=== PATIENT | female | born 1945 | race Caucasian/White ===

== ENCOUNTER → 2019-05-02 | Outpatient (CLI) | payer MEDICARE ==
--- NOTE | 2019-05-02 21:46 | CONS ---
CONSULTATION DATE OF SERVICE: 05/02/2019 This patient is a 73-year-old lady who has been evaluated in the sleep center for possible obstructive sleep apnea-hypopnea syndrome. HISTORY OF PRESENT ILLNESS/SLEEP-WAKE EVALUATION: Patient's usual sleep schedule is from around midnight until 8 a.m. Sometimes she has problems with falling asleep. There is a TV set in the bedroom. She usually sleeps on the side position with her with loud snoring and episodes of snorting during sleep. She wakes up from sleep multiple times, about 5 times, and 3 times with nocturia. She has episodes of awakenings with dry mouth, panic attack, episodes of palpitations, heartburn, restless legs, sleeptalking, sometimes nightmares. In the morning she wakes up tired, has difficulties paying attention, falling asleep during the day. She has problems with memory, concentration, irritability, depression, anxiety, sexual dysfunction. [place] Sleepiness Scale is significantly increased at 20. PAST MEDICAL HISTORY: Past medical history is positive for: 1. 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 2. Atherosclerosis with narrowing of carotid arteries. 3. Coronary artery disease. 4. 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 5. Hypertension. 6. History of deep venous thrombosis of right leg. PAST SURGICAL HISTORY: 1. Bilateral carotid endarterectomy. 2. Three stent insertions to coronary arteries. 3. Stent insertion to arteries of right leg and iliac artery. MEDICATIONS: 1. Sertraline. 2. Amlodipine. 3. Clopidogrel. 4. Metoprolol. 5. Xanax. 6. Atorvastatin. 7. Aspirin. SOCIAL HISTORY: Positive for smoking for about 55 pack/years; quit one year ago. Alcohol consumption none. FAMILY HISTORY: Hypertension, hyperlipidemia, arthritis, emphysema, snoring, cancer, acid reflux, anemia, restless legs. REVIEW OF SYSTEMS: Multiple awakenings from sleep, tiredness and sleepiness during the day. Swelling of right leg. PHYSICAL EXAMINATION: GENERAL: A pleasant lady without distress. VITAL SIGNS: BP 134/58, HR 70, RR 16, height 5 feet 1-1/2 inch, weight 162, body mass index 30.1, temperature 98.0, oxygen saturation at room air 98%. HEENT: PERRLA, EOMI. Evaluation of oropharynx showed tongue protrudes midline. Extremely low position of soft palate. Mallampati IV. Slight restriction of nasal breathing. NECK: Supple. No JVD. Thyroid is not palpable. Neck measures 14-1/2 inches in circumference. LUNGS: Clear to percussion and to auscultation. Good air exchange. No wheezing or rhonchi. HEART: S1, S2 regular. No murmurs, gallops or rubs. ABDOMEN: Slightly obese. EXTREMITIES: One plus swelling of right ankle. VACUUM REPAIRER: Awake, alert, and oriented X3. Cranial nerves 2 to 7 intact. There is no fasciculation or atrophy. noted. No focal deficits observed. IMPRESSION: 1. Snoring, episodes of snorting during sleep, multiple awakenings from sleep with nocturia, extremely low position of soft palate, Mallampati IV, significant excessive daytime sleepiness ([place] Sleepiness Scale is 20); obstructive sleep apnea/ hypopnea syndrome. 2. Mild obesity; body mass index 30.1. 3. Hypertension. 4. Coronary artery disease, status post 3 stent insertions. 5. History of episode of atrial fibrillation. 6. Status post bilateral carotid endarterectomy. 7. Status post stent insertion to right leg artery and iliac artery. 8. History of stroke in January of 2018 and developing of left eye blindness. 9. History of deep venous thrombosis of right leg. PLAN: 1. Polysomnography for evaluation of patient's breathing during sleep. 2. CPAP/BiPAP titration if sleep study confirms obstructive sleep apnea-hypopnea syndrome. 3. Preferable position during sleep on the side. 4. No driving if patient feels any sleepiness. 5. I will see patient for follow up visit to explain results of testing and following plan. Thank you very much for referring this patient for consultation. Sincerely, Ron Draper MD, PhD, FAASM Diplomat of [employer] [facility] MMODL / IJN: [id number] /
== END | disposition home or self-care (01) ==
LOC: SLEEP 14:18
PROVIDERS: ATTEND Internal Medicine
DX: G47.33 Obstructive sleep apnea (adult) (pediatric) (principal); E66.9 Obesity, unspecified; I10 Essential (primary) hypertension; I25.10 Atherosclerotic heart disease of native coronary artery without angina pectoris; H54.40 Blindness, one eye, unspecified eye; Z95.5 Presence of coronary angioplasty implant and graft; Z68.30 Body mass index [BMI] 30.0-30.9, adult; Z86.79 Personal history of other diseases of the circulatory system; Z98.890 Other specified postprocedural states; Z95.820 Peripheral vascular angioplasty status with implants and grafts; Z86.73 Personal history of transient ischemic attack (TIA), and cerebral infarction without residual deficits; Z87.891 Personal history of nicotine dependence; Z86.718 Personal history of other venous thrombosis and embolism; Z83.6 Family history of other diseases of the respiratory system; Z79.02 Long term (current) use of antithrombotics/antiplatelets; Z79.82 Long term (current) use of aspirin; Z79.899 Other long term (current) drug therapy
CPT/HCPCS: 99211

== ENCOUNTER 2023-01-08 14:35 | Inpatient (IN) | payer MEDICARE ==
[2023-01-08] MEDS ORDERED: IPRATROPIUM-ALBUTEROL 3 ML NEB INHALATION STA (14:59)
[2023-01-08] MEDS ORDERED: HYDROmorphone 0.5 MG/0.5 ML SYRINGE IVP STA (14:59)
[2023-01-08] MEDS ORDERED: SODIUM CHLORIDE 0.9% 1,000 ML IV STA (14:59)
[2023-01-08 15:31] LABS: Anisocytosis Slight; Basophils % (A) 0 %; Eosinophils # (A) 0.3 k/uL (0-0.7); Eosinophils % (A) 4 %; HCT 32.1 % (34.0-46.0); HGB 10.4 gm/dL (11.4-16.0); Hypochromasia Slight; Lymphocytes # (A) 0.8 k/uL (1.0-4.8); Lymphocytes % (A) 11 %; MCH 29.5 pg (25.0-35.0); MCHC 32.3 g/dL (31.0-37.0); MCV 91.3 fL (80.0-100.0); Mean Platelet Volume 9.1; Monocytes # (A) 0.3 k/uL (0-1.0); Monocytes % (A) 5 %; Neutrophils # (A) 5.8 k/uL (1.3-7.7); Neutrophils % (A) 79 %; Platelet Count 155 k/uL (150-450); RBC 3.52 m/uL (3.80-5.40); RDW 18.4 % (11.5-15.5); WBC 7.2 k/uL (3.8-10.6)
[2023-01-08 15:40] LABS: INR 1.1 (<1.2); Partial Thromboplastin Time 23.7 sec (22.0-30.0)
--- NOTE | 2023-01-08 15:42 | XR ---
EXAMINATION TYPE: XR chest 1V DATE OF EXAM: 01/08/2023 HISTORY: Shortness of breath. COMPARISON: None. TECHNIQUE: Single view of the chest is submitted. FINDINGS: Demonstrated are scattered senescent parenchymal change. There is no evidence for focal infiltrate. Chronic appearing upper lobe reticulonodular changes. The heart is stable. Hilar and mediastinal structures are within normal limits. Degenerative changes are seen of the dorsal spine. IMPRESSION: 1. Chronic changes without evidence for acute pulmonary disease.
[2023-01-08 15:45] LABS: African American GFR (CKD) 88 (>60 ml/min/1.73 sqM); Anion Gap 6 mmol/L; Blood Urea Nitrogen 14 mg/dL (7-17); Calcium 8.5 mg/dL (8.4-10.2); Carbon Dioxide 22 mmol/L (22-30); Chloride 109 mmol/L (98-107); Glucose 105 mg/dL (74-99); Non-African American GFR(CKD) 77 (>60 ml/min/1.73 sqM); Potassium 4.3 mmol/L (3.5-5.1); Sodium 137 mmol/L (137-145)
--- NOTE | 2023-01-08 15:50 | CT ---
EXAMINATION TYPE: CT brain wo con DATE OF EXAM: 01/08/2023 COMPARISON: None HISTORY: fall CT DLP: 1143.[address] of the brain was performed. The ventricles, basal cisterns and sulci overlying the cerebral convexities demonstrate mild enlargem ent. There is no evidence for intracranial hemorrhage or sulcal effacement. There is decreased attenuation about the periventricular white matter and deep white matter of both c erebral hemispheres, compatible with chronic small vessel ischemia. Differential diagnosis does inclu de demyelination. No mass effects are seen.No midline shift. Osseous calvarium is intact. If symptoms persist consider MRI. IMPRESSION: 1. Age related atrophic and chronic small vessel ischemic change without acute intracranial process s een at this time.
[2023-01-08] MEDS ORDERED: methylPREDNISolone SOD SUCCI 40 MG/ML 1 ML VIAL IV STA (16:15)
[2023-01-08] MEDS ORDERED: NALOXONE 0.4 MG/ML 1 ML VIAL IV PRN (16:20)
[2023-01-08] MEDS: SODIUM CHLORIDE 0.9% 1,000 ML IV SCH (16:55)
[2023-01-08] MEDS ORDERED: IPRATROPIUM-ALBUTEROL 3 ML NEB INHALATION PRN (18:14)
[2023-01-08] MEDS: HYDROmorphone 0.5 MG/0.5 ML SYRINGE IVP PRN (18:20)
--- NOTE | 2023-01-08 18:29 | P.CONS ---
History of Present Illness - Reason for Consult Consult date: 01/08/23 - History of Present Illness Patient is a 77-year-old female with PMH of CAD post 2 stents 3 years ago, PAD post right lower extremity stenting, bilateral endarterectomy, CVA 5 years ago that led to complete left eye blindness, hypertension, dyslipidemia, depression, hypothyroidism, COPD presents to the ED as a transfer from an outside hospital for right intertrochanteric fracture. Patient reports tripping over her dog bowl. She denies any loss of consciousness. She currently rates her pain 8 out of 10 in severity. Patient is originally from [place] and follows a vascular surgeon and systems admin. She currently denies any chest pain. She reports shortness of breath and wheezing. She is not on any home oxygen. She is unable to describe her exercise tolerance as her mobility is quite limited due to her PAD and herniated disc in the back. In the ED, she was requiring 4 L nasal cannula to maintain O2 saturation in the low 90s. Chest x-ray showed chronic reticulonodular changes with no acute process. CT brain showed chronic small vessel ischemic changes without acute intracranial process. CBC shows he moglobin of 10.4 with MCV of 91.3. Coagulation panel within normal limits. BMP shows chloride 109 and glucose 105. Patient is admitted under orthopedic surgery with [facility] on consultation. Pertinent positives and negatives as discussed in HPI, a complete review of systems was performed and all other systems are negative. General: non toxic, mild distress, appears at stated age Derm: warm, dry Head: atraumatic, normocephalic, symmetric Eyes: EOMI, no lid lag, anicteric sclera Mouth: no lip lesion, mucus membranes moist Cardiovascular: S1S2 reg, no murmur Lungs: Expiratory wheezing bilateral, no rhonchi, no rales , no accessory muscle use Abdominal: soft, nontender to palpation, no guarding, no appreciable organomegaly Ext: no gross muscle atrophy, no edema, no contractures Neuro: no focal neuro deficits Psych: Alert, oriented, appropriate affect Acute hypoxic respiratory failure secondary to COPD exacerbation Chronic conditions: CAD post 2 stents 3 years ago, PAD post right lower extremity stenting, bilateral endarterectomy, CVA 5 years ago that led to complete left eye blindness, hypertension, dyslipidemia, depression, hypothyroidism Based on my assessment of this patient, this patient meets a high complexity level of care. Patient has an acute diagnosis of right intertrochanteric fracture that poses a threat to life or bodily function. This is also complicated by COPD exacerbation. She currently is requiring 4 L cannula to maintain O2 saturation greater than 92%. Patient is above average risk for serious complications including pneumonia, cardiac complications and . She would need to be medically optimized with regard to her respiratory status prior to surgery. EKG will be ordered. Echocardiogram will be ordered. Patient be placed on telem etry monitoring. Hold Xarelto and Plavix for now. Pulmonology will be consulted for further management of this patient. Cardiology will be consulted for cardiac clearance. Bronchodilators: DuoNeb 0.5mg-3mg/3ml scheduled and as needed for SOB and wheezing. Symbicort 2 puff BID. Spiriva 1 puff daily. Steroids: SoluMedrol 40 mg IV BID. Supplemental oxygen to maintain O2 > 92%. Lovenox SQ for DVT prophylaxis. Patient names her decision maker if she can't make decisions for herself. Patient would like to be full code. I have reviewed the following oracle database consultant notes: I have reviewed the results of the following tests: CBC, BMP, coagulation panel, CT brain. I have ordered the following tests: EKG, echocardiogram. I have discussed the care of this patient with the following independent historian: I have independently interpreted the following test below: Chest x-ray as above. I have discussed the management of this patient with the following physician: Case was discussed with the ED physician in detail. Past Medical History Past Medical History: Asthma, COPD, Deep Vein Thrombosis (DVT), Hyperlipidemia, Hypertension History of Any Multi-Drug Resistant Organisms: None Reported Past Surgical History: Heart Catheterization With Stent Additional Past Surgical History / Comment(s): Right leg PAD Past Psychological History: No Psychological Hx Reported Smoking Status: Former smoker Past Alcohol Use History: None Reported Past Drug Use History: None Reported Medications and Allergies Home Medications Medication Instructions Recorded Confirmed Type Clopidogrel [Plavix] 75 mg PO DAILY 01/08/23 01/08/23 History Ferrous Sulfate [Feosol] 325 mg PO DAILY 01/08/23 01/08/23 History Fluticasone/Umeclidin/Vilanter 1 puff INHALATION RT-DAILY PRN 01/08/23 01/08/23 History [Trelegy Ellipta 100-62.5-25] Levothyroxine Sodium [Synthroid] 25 mcg PO DAILY 01/08/23 01/08/23 History Nebivolol HCl 10 mg PO HS 01/08/23 01/08/23 History Pregabalin [Lyrica] 75 - 150 mg PO Q8H PRN 01/08/23 01/08/23 History Rivaroxaban [Xarelto] 2.5 mg PO BID 01/08/23 01/08/23 History Rosuvastatin Calcium [Crestor] 40 mg PO HS 01/08/23 01/08/23 History Sertraline [Zoloft] 100 mg PO DAILY 01/08/23 01/08/23 History Allergies Allergy/AdvReac Type Severity Reaction Status Date / Time No Known Allergies Allergy Verified 01/08/23 16:45 Physical Exam Vitals: Vital Signs Temp Pulse Resp BP Pulse Ox 01/08/23 18:17 71 18 132/45 90 L 01/08/23 17:30 74 18 113/62 93 L 01/08/23 15:52 77 18 01/08/23 15:47 75 18 01/08/23 14:39 98.3 F 73 18 119/40 92 L Intake and Output 01/08/23 01/08/23 01/08/23 06:59 14:59 22:59 Other: Weight 67.585 kg Results CBC & Chem 7: 01/08/23 15:02 01/08/23 15:02 Labs: Abnormal Lab Results - Last 24 Hours (Table) 01/08/23 01/08/23 Range/Units 15:02 15:02 RBC 3.52 L (3.80-5.40) m/uL Hgb 10.4 L (11.4-16.0) gm/dL Hct 32.1 L (34.0-46.0) % RDW 18.4 H (11.5-15.5) % Lymphocytes # 0.8 L (1.0-4.8) k/uL Chloride 109 H (98-107) mmol/L Glucose 105 H (74-99) mg/dL
[2023-01-08] MEDS ORDERED: HYDROcodone/APAP 5-325MG 1 EACH TAB PO PRN (19:55)
[2023-01-08] MEDS ORDERED: ONDANSETRON 4 MG/2 ML VIAL IVP PRN (19:56)
[2023-01-08] MEDS ORDERED: IPRATROPIUM-ALBUTEROL 3 ML NEB INHALATION SCH (20:00)
[2023-01-08] MEDS: HYDROcodone/APAP 7.5-325MG 1 EACH TAB PO PRN (20:29)
[2023-01-08] MEDS: ATORVASTATIN 80 MG TAB PO SCH (20:30)
[2023-01-08] MEDS: NEBIVOLOL 5 MG TAB PO SCH (20:30)
[2023-01-08] MEDS ORDERED: methylPREDNISolone SOD SUCCI 40 MG/ML 1 ML VIAL IV SCH (21:00)
--- NOTE | 2023-01-08 21:16 | ED ---
General Adult HPI - General Chief complaint: Extremity Injury, Lower Stated complaint: Right hip fracture Time Seen by Provider: 01/08/23 14:39 Source: patient, EMS, RN notes reviewed, old records reviewed Mode of arrival: EMS Limitations: no limitations - History of Present Illness Initial comments: Patient is a 77-year-old female with past medical history remarkable for atrial fibrillation on xeralto, COPD, who is transferred from [facility] as she is a [facility] resident for a right hip fracture. Patient fell yesterday tripping over a dog dishes and landed on her right hip. Denies loss conscious. Denies any blood thinner use. CT imaging obtained at the outside hospital revealed a right femoral intertrochanteric fracture. Transferred to the [facility], [facility] for further management. Denies any neurovascular deficits in the right lower extremity. No other imaging obtained at the outside facility. Otherwise has no acute complaints other than pain. Patient does present mildly hypoxic in the upper 80s, which improves on 2 L nasal cannula. She states she does have a history of COPD. Is not normally on oxygen. Presents for further evaluation at this time. Presents for admission. - Related Data Home Medications Medication Instructions Recorded Confirmed Clopidogrel [Plavix] 75 mg PO DAILY 01/08/23 01/08/23 Ferrous Sulfate [Feosol] 325 mg PO DAILY 01/08/23 01/08/23 Fluticasone/Umeclidin/Vilanter 1 puff INHALATION RT-DAILY PRN 01/08/23 01/08/23 [Trelegy Ellipta 100-62.5-25] Levothyroxine Sodium [Synthroid] 25 mcg PO DAILY 01/08/23 01/08/23 Nebivolol HCl 10 mg PO HS 01/08/23 01/08/23 Pregabalin [Lyrica] 75 - 150 mg PO Q8H PRN 01/08/23 01/08/23 Rivaroxaban [Xarelto] 2.5 mg PO BID 01/08/23 01/08/23 Rosuvastatin Calcium [Crestor] 40 mg PO HS 01/08/23 01/08/23 Sertraline [Zoloft] 100 mg PO DAILY 01/08/23 01/08/23 Allergies Allergy/AdvReac Type Severity Reaction Status Date / Time No Known Allergies Allergy Verified 01/08/23 16:45 Review of Systems ROS Statement: Those systems with pertinent positive or pertinent negative responses have been documented in the HPI. Review of Systems: CONST: Denies fever EYES: Denies blurry vision ENT: Denies nasal congestion C/V: Denies Chest pain RESP: Denies shortness of breath GI: Denies abdominal pain : Denies dysuria SKIN: Denies rash. MSK: Endorses right hip pain NEURO: Denies headache ROS Other: All systems not noted in ROS Statement are negative. Past Medical History Past Medical History: Asthma, COPD, Deep Vein Thrombosis (DVT), Hyperlipidemia, Hypertension History of Any Multi-Drug Resistant Organisms: None Reported Past Surgical History: Heart Catheterization With Stent Additional Past Surgical History / Comment(s): 2 heart stents, 2 R Upper leg s tents, 1 R iliac stent (all MRI compatible) Past Anesthesia/Blood Transfusion Reactions: No Reported Reaction Date of Last Stent Placement:: 2018 Past Psychological History: No Psychological Hx Reported Smoking Status: Former smoker Past Alcohol Use History: None Reported Past Drug Use History: None Reported General Exam - General Exam Comments Initial Comments: General: Appears in mild distress secondary to right hip pain. HEAD: Normal with no signs of head trauma. EYES: PERRLA, EOMI, conjunctiva normal, no discharge. ENT: Hearing grossly intact, normal oropharynx. RESPIRATORY: Bilateral end expiratory wheezing. Hypoxia on room air. C/V: Regular rate and rhythm. S1 and S2 auscultated, no edema, peripheral pulses 2+ and intact throughout ABD: Abd is soft, nontender, nondistended EXT: Reduced range of motion of the right hip secondary to pain in the right hip. No obvious deformity. Neurovascularly intact throughout the right lower extremity. SKIN: No rashes or lesions observed on exposed skin. NEURO: Alert and oriented x 4. Cranial nerves II-XII intact. No focal sensory or strength deficits. Limitations: no limitations Course Vital Signs 01/08/23 01/08/23 01/08/23 14:39 15:47 15:52 Temperature 98.3 F Pulse Rate 73 75 77 Respiratory 18 18 18 Rate Blood Pressure 119/40 O2 Sat by Pulse 92 L Oximetry 01/08/23 17:30 Temperature Pulse Rate 74 Respiratory 18 Rate Blood Pressure 113/62 O2 Sat by Pulse 93 L Oximetry Medical Decision Making - Medical Decision Making Was pt. sent in by a medical professional or institution (Dr., PA, PRODUCE ASSOCIATE, urgent care, hospital, or long term...) When possible be specific @ -No Did you speak to anyone other than the patient for history (EMS, parent, family, police, friend...)? What history was obtained from this source @ -No Did you review nursing and triage notes (agree or disagree)? Why? @ -I reviewed and agree with nursing and triage notes Were old charts reviewed (outside hosp., previous admission, EMS record, old EKG, old radiological studies, urgent care reports/EKG's, long term records)? Report findings @ -Charts reviewed from the [place] emergency department. Imaging uploaded into our EMR. Differential Diagnosis (chest pain, altered mental status, abdominal pain women, abdominal pain men, vaginal bleeding, weakness, fever, dyspnea, syncope, headache, dizziness, GI bleed, back pain, seizure, CVA, palpatations, mental he alth, musculoskeletal)? @ -Differential Musculoskeletal Muscular strain, contusion, ligament sprain, fracture, arthritis, septic arthritis, bursitis, cellulitis, muscle spasm, nerve compression, DVT, arterial occlusion, herpes zoster, electrolyte abnormality, tumor.... This is not meant to be in all inclusive list EKG interpreted by me (3pts min.). @ -As above X-rays interpreted by me (1pt min.). @ -Chest x-ray reveals no obvious acute cardio pulmonary process. CT interpreted by me (1pt min.). @ -CT brain was obtained and showed no obvious acute intracranial process. U/S interpreted by me (1pt. min.). @ -None done What testing was considered but not performed or refused? (CT, X-rays, U/S, labs)? Why? @ -None What meds were considered but not given or refused? Why? @ -None Did you discuss the management of the patient with other professionals (professionals i.e. LOVE Donahue, PRODUCE ASSOCIATE, lab, RT, psych nurse, child welfare social worker, oenologist, t eacher, human resources officer, rifle case repairer)? Give summary @ -Spoke with mid-level provider [facility] accepted the admission. Spoke with [facility], Dr. Le who accepted the consult. Was smoking cessation discussed for >3mins.? @ -No Was critical care preformed (if so, how long)? @ -No Were there social determinants of health that impacted care today? How? (Myriam elessness, low income, unemployed, alcoholism, drug addiction, transportation, low edu. Level, literacy, decrease access to med. care, [facility], rehab)? @ -No Was there de-escalation of care discussed even if they declined (Discuss DNR or withdrawal of care, Hospice)? DNR status @ -No What co-morbidities impacted this encounter? (DM, HTN, Smoking, COPD, CAD, Cancer, CVA, ARF, Chemo, Hep., AIDS, mental health diagnosis, sleep apnea, morbid obesity)? @ -Atrial fibrillation on blood thinners, COPD Was patient admitted / discharged? Hospital course, mention meds given and route, prescriptions, significant lab abnormalities, going to OR and other pertinent info. @ -Based on the patient's presentation and physical exam, I'm concerned for what looks like a right femoral fracture. Already diagnosed based on imaging from [facility]. She'll be admitted for this, however they did not obtain CT brain. Mental status appears well but I would like to definitively rule out any significant intracranial injury. She was in agreement this plan. She was a fall on blood thinners. Due to her hypoxia, we will also obtain a chest x-ray as well as preop labs. She'll be symptomatically treated with IV steroids, breathing treatments for COPD. She was in agreement with this plan. She'll be given IV analgesic medications. Vital signs within acceptable limits when patient is on nasal cannula oxygen. CT imaging unremarkable. Chest x-ray unremarkable. EKG shows no evidence of acute ischemia. Labs are within acceptable limits. At this time, I gave the patient. She'll be admitted. She was in agreement this plan. We will hold anticoagulation. Patient's wheezing is improved but we'll continue treatment with IV steroids and breathing treatments. Pulmonology will be consulted. Medicine will be consulted for medical management. I spoke with Dr. Le who accepted the consult. I suspect with the admitting team, orthopedics on-call Luis A Ellis who accepted the admission. Undiagnosed new problem with uncertain prognosis? @ -No Drug Therapy requiring intensive monitoring for toxicity (Heparin, Nitro, Insulin, Cardizem)? @ -No Were any procedures done? @ -No Diagnosis/symptom? @ -Fall, right intertrochanteric femur fracture Acute, or Chronic, or Acute on Chronic? @ -Acute Uncomplicated (without systemic symptoms) or Complicated (systemic symptoms)? @ -Complicated Side effects of treatment? @ -No Exacerbation, Progression, or Severe Exacerbation? @ -No Poses a threat to life or bodily function? How? (Chest pain, USA, MS, pneumonia, PE, COPD, DKA, ARF, appy, cholecystitis, CVA, Diverticulitis, Homicidal, Suicidal, threat to staff... and all critical care pts) @ -yes Diagnosis/symptom? @ -COPD exacerbation Acute, or Chronic, or Acute on Chronic? @ -Acute Uncomplicated (without systemic symptoms) or Complicated (systemic symptoms)? @ -Complicated Side effects of treatment? @ -none Exacerbation, Progression, or Severe Exacerbation] @ -no Poses a threat to life or bodily function? @ -Yes - Lab Data Result diagrams: 01/08/23 15:02 01/08/23 15:02 Lab Results 01/08/23 01/08/23 01/08/23 Range/Units 15:02 15:02 15:02 WBC 7.2 (3.8-10.6) k/uL RBC 3.52 L (3.80-5.40) m/uL Hgb 10.4 L (11.4-16.0) gm/dL Hct 32.1 L (34.0-46.0) % MCV 91.3 (80.0-100.0) fL MCH 29.5 (25.0-35.0) pg MCHC 32.3 (31.0-37.0) g/dL RDW 18.4 H (11.5-15.5) % Plt Count 155 (150-450) k/uL MPV 9.1 Neutrophils % 79 % Lymphocytes % 11 % Monocytes % 5 % Eosinophils % 4 % Basophils % 0 % Neutrophils # 5.8 (1.3-7.7) k/uL Lymphocytes # 0.8 L (1.0-4.8) k/uL Monocytes # 0.3 (0-1.0) k/uL Eosinophils # 0.3 (0-0.7) k/uL Basophils # 0.0 (0-0.2) k/uL Hypochromasia Slight Anisocytosis Slight PT 11.0 (9.0-12.0) sec INR 1.1 (<1.2) APTT 23.7 (22.0-30.0) sec Sodium 137 (137-145) mmol/L Potassium 4.3 (3.5-5.1) mmol/L Chloride 109 H (98-107) mmol/L Carbon Dioxide 22 (22-30) mmol/L Anion Gap 6 mmol/L BUN 14 (7-17) mg/dL Creatinine 0.75 (0.52-1.04) mg/dL Est GFR (CKD-EPI)AfAm 88 (>60 ml/min/1.73 sqM) Est GFR (CKD-EPI)NonAf 77 (>60 ml/min/1.73 sqM) Glucose 105 H (74-99) mg/dL Calcium 8.5 (8.4-10.2) mg/dL Blood Type Confirm 01/08/23 Range/Units 15:02 WBC (3.8-10.6) k/uL RBC (3.80-5.40) m/uL Hgb (11.4-16.0) gm/dL Hct (34.0-46.0) % MCV (80.0-100.0) fL MCH (25.0-35.0) pg MCHC (31.0-37.0) g/dL RDW (11.5-15.5) % Plt Count (150-450) k/uL MPV Neutrophils % % Lymphocytes % % Monocytes % % Eosinophils % % Basophils % % Neutrophils # (1.3-7.7) k/uL Lymphocytes # (1.0-4.8) k/uL Monocytes # (0-1.0) k/uL Eosinophils # (0-0.7) k/uL Basophils # (0-0.2) k/uL Hypochromasia Anisocytosis PT (9.0-12.0) sec INR (<1.2) APTT (22.0-30.0) sec Sodium (137-145) mmol/L Potassium (3.5-5.1) mmol/L Chloride (98-107) mmol/L Carbon Dioxide (22-30) mmol/L Anion Gap mmol/L BUN (7-17) mg/dL Creatinine (0.52-1.04) mg/dL Est GFR (CKD-EPI)AfAm (>60 ml/min/1.73 sqM) Est GFR (CKD-EPI)NonAf (>60 ml/min/1.73 sqM) Glucose (74-99) mg/dL Calcium (8.4-10.2) mg/dL Blood Type Confirm O Negative - EKG Data -: EKG Interpreted by Me EKG Comments: 12-lead Electrocardiogram Interpretation Note EKG was reviewed and interpreted by myself. 12-lead ECG performed at 1519 is interpreted by me as revealing normal sinus rhythm at a rate of 71 beats per minute. [place] is normal. [place] interval is 178 ms, QRS duration is 88 ms, QTc is 4 11 ms.. There were no ST or T wave abnormalities to suggest myocardial ischemia or injury. R wave progression across the precordium was satisfactory. By my interpretation this EKG is non-diagnostic for acute ischemia. Disposition Clinical Impression: COPD exacerbation, Acute respiratory failure with hypoxia, Fall, Fracture, intertrochanteric, right femur Disposition: ADMITTED IP TO THIS HOSP Condition: Stable Time of Disposition: 16:11
[2023-01-09] MEDS: HYDROmorphone 1 MG/ML 1 ML SYRINGE IVP PRN ×3 (00:22→22:41)
[2023-01-09] MEDS: methylPREDNISolone SOD SUCCI 125 MG/2 ML VIAL IV SCH ×4 (00:23→18:30)
--- NOTE | 2023-01-09 01:28 | P.CNPUL ---
History of Present Illness Consult date: 01/09/23 Requesting physician: Minesh Minor Reason for consult: COPD Chief complaint: Fall resulting in right hip fracture History of present illness: I am seeing this patient in new consultation today 01/09/2023 after the patient was transferred from an outside facility in [facility]. Patient is a 77-year-old female with past medical history significant for COPD, asthma, coronary artery disease, prior heart catheterizations with 2 cardiac stents, hypertension, hyperlipidemia, peripheral arterial disease with 3 right leg stents, chronic anemia requiring iron infusions, DVT, and is a remote ex-smoker. Patient is a current resident of [place]. She does reportedly follow with a care coordination manager for management of her asthma and COPD. She states that she uses Trelegy inhaler and when necessary albuterol nebulizations on an outpatient basis. Patient was transferred from [facility] in [facility] yesterday afternoon. She reportedly tripped over a dog bowl while at her daughter's house on Monday. She was then taken to the hospital, and was found to have a right hip fracture. CT of the pelvis without contrast at outside facility showed a minimally displaced comminuted right femoral intra- trochanteric fracture with comminution seen more extensive in the vicinity of the greater trochanter. Peripheral pulses are intact and there are no signs of compartment syndrome. She is scheduled for surgery with Dr. Hidalgo tomorrow. We were consulted for management of the patient's COPD. She is wheezy on auscultation. She denies any shortness of breath, fevers/chills, change in her chronic cough, sputum production, chest pain, hemoptysis. Denies sick contacts. She also denies any chest pain, heart palpitations, lightheadedness, syncope, lower extremity swelling, orthopnea. Patient is currently sitting up in bed, on 3 L nasal cannula, in no acute distress. She is oxygenating at 90%. Chest x- ray on arrival showed some chronic upper lobe reticulonodular changes without any focal consolidation or evidence of pneumonia. CBC on arrival showed a WBC count of 7.2, hemoglobin 10.4, hematocrit 32.1, platelets 155. BMP was unremarkable. Normal saline is currently infusing at 75 mL per hour. Patient is anticoagulated on Xarelto on an outpatient basis, and clinical suspicion for pulmonary embolism is low. ECG on arrival shows no obvious acute ischemic changes. Patient appears stable and admitted to the general medical floor. Review of Systems REVIEW OF SYSTEMS: CONSTITUTIONAL: Denies any recent significant weight loss or weight gain. EYES: Denies change in vision. EARS, NOSE, MOUTH, THROAT: Denies headaches, denies sore throat. CARDIOVASCULAR: Denies chest pain, palpitations or syncopal episodes. RESPIRATORY: See HPI GASTROINTESTINAL: Denies change in appetite, abdominal pain, nausea and vomiting, or diarrhea GENITOURINARY: Denies hematuria, denies infections. MUSKULOSKELETAL: Admits right hip pain. denies swelling. INTEGUMENTARY: Denies rash, denies eczema. NEUROLOGICAL: Denies recent memory loss, no recent seizure activity. PSYCHIATRIC: Denies anxiety, denies depression. HEMATOLOGIC/LYMPHATIC: Denies anemia, denies enlarged lymph node Past Medical History Past Medical History: Asthma, COPD, Deep Vein Thrombosis (DVT), Hyperlipidemia, Hypertension History of Any Multi-Drug Resistant Organisms: None Reported Past Surgical History: Heart Catheterization With Stent Additional Past Surgical History / Comment(s): 2 heart stents, 2 R Upper leg jovi nts, 1 R iliac stent (all MRI compatible) Past Anesthesia/Blood Transfusion Reactions: No Reported Reaction Date of Last Stent Placement:: 2018 Past Psychological History: No Psychological Hx Reported Smoking Status: Former smoker Past Alcohol Use History: None Reported Past Drug Use History: None Reported Medications and Allergies Home Medications Medication Instructions Recorded Confirmed Type Clopidogrel [Plavix] 75 mg PO DAILY 01/08/23 01/08/23 History Ferrous Sulfate [Feosol] 325 mg PO DAILY 01/08/23 01/08/23 History Fluticasone/Umeclidin/Vilanter 1 puff INHALATION RT-DAILY PRN 01/08/23 01/08/23 History [Trelegy Ellipta 100-62.5-25] Levothyroxine Sodium [Synthroid] 25 mcg PO DAILY 01/08/23 01/08/23 History Nebivolol HCl 10 mg PO HS 01/08/23 01/08/23 History Pregabalin [Lyrica] 75 - 150 mg PO Q8H PRN 01/08/23 01/08/23 History Rivaroxaban [Xarelto] 2.5 mg PO BID 01/08/23 01/08/23 History Rosuvastatin Calcium [Crestor] 40 mg PO HS 01/08/23 01/08/23 History Sertraline [Zoloft] 100 mg PO DAILY 01/08/23 01/08/23 History Allergies Allergy/AdvReac Type Severity Reaction Status Date / Time No Known Allergies Allergy Verified 01/08/23 16:45 Physical Exam Vitals: Vital Signs Temp Pulse Pulse Resp BP BP Pulse Ox 01/08/23 21:01 74 01/08/23 20:51 72 01/08/23 19:31 98.2 F 71 18 153/66 90 L 01/08/23 18:17 71 18 132/45 90 L 01/08/23 17:30 74 18 113/62 93 L 01/08/23 15:52 77 18 01/08/23 15:47 75 18 01/08/23 14:39 98.3 F 73 18 119/40 92 L Intake and Output 01/08/23 01/08/23 01/09/23 14:59 22:59 06:59 Other: Weight 67.585 kg 67.585 kg GENERAL EXAM: Alert, 69-year-old white female , comfortable in no apparent distress. HEAD: Normocephalic and atraumatic EYES: Normal reaction of pupils, equal size. NOSE: Clear with pink turbinates. THROAT: No erythema or exudates. NECK: No masses, no JVD. CHEST: No chest wall deformity. LUNGS: Equal air entry with expiratory wheezes and scattered rhonchi throughout. on 3 L nasal cannula.. No conversational dyspnea or accessory muscle use.. CVS: S1 and S2 normal with soft systolic ejection murmur grade 2, regular rhythm. No other extra heart sounds ABDOMEN: No hepatosplenomegaly, active bowel sounds, no guarding or rigidity. SPINE: No scoliosis or deformity SKIN: No rashes CENTRAL NERVOUS SYSTEM: No focal deficits, tone is normal in all 4 extremities. EXTREMITIES: There is no peripheral edema, clubbing, or cyanosis. Peripheral pulses are intact. Results - Laboratory Findings CBC and BMP: 01/08/23 15:02 01/08/23 15:02 PT/INR, D-dimer PT 11.0 sec (9.0-12.0) 01/08/23 15:02 INR 1.1 (<1.2) 01/08/23 15:02 Abnormal lab findings: Abnormal Labs 01/08/23 01/08/23 15:02 15:02 RBC 3.52 L Hgb 10.4 L Hct 32.1 L RDW 18.4 H Lymphocytes # 0.8 L Chloride 109 H Glucose 105 H - Diagnostic Findings Chest x-ray: image reviewed Assessment and Plan Assessment: Right femoral intertrochanteric fracture as described on CT of the pelvis without contrast at outside facility. She is tentatively scheduled for surgery with Dr. Hidalgo tomorrow. Acute COPD exacerbation. Chest x-ray on arrival did not show any acute infiltrates or evidence of pneumonia. Acute hypoxemic respiratory failure secondary to above, on 3 L/m nasal cannula. History of asthma Coronary artery disease, with 2 prior cardiac stents History of peripheral arterial disease, with prior revascularization and 3 stents to the right leg Essential hypertension Hyperlipidemia Chronic iron deficiency anemia requiring iron infusions History of DVT, anticoagulated on Xarelto on an outpatient basis Hypothyroidism Ex-smoker, remote history Plan: Patient's medications, labs, chest x-ray reviewed Patient is tentatively scheduled for surgery with Dr. Hidalgo tomorrow Continue supplemental oxygen Patient was anticoagulated on outpatient basis, clinical suspicion for PE is low Check the patient for COVID-19 Start the patient on a combination of bronchodilators, Symbicort inhaler, IV Solu-Medrol DVT prophylaxis with Lovenox GI prophylaxis with Pepcid Pain appears to be managed well with when necessary analgesics We will continue to follow I have personally seen and examined the patient, performed the documentation and the assessment and plan as written. Number of minutes spent on the visit:20 Time with Patient: Greater than 30
[2023-01-09] MEDS: HYDROcodone/APAP 7.5-325MG 1 EACH TAB PO PRN (02:43)
[2023-01-09] MEDS: SODIUM CHLORIDE 0.9% 1,000 ML IV SCH (06:09)
[2023-01-09] MEDS: IPRATROPIUM-ALBUTEROL 3 ML NEB INHALATION SCH ×4 (09:03→20:08)
[2023-01-09] MEDS: SYMBICORT 160-4.5 MCG INHALER INHALATION SCH ×2 (09:03→20:08)
[2023-01-09] MEDS: SERTRALINE 100 MG TAB PO SCH (09:14)
[2023-01-09] MEDS: FAMOTIDINE 20 MG TAB PO SCH (09:14)
[2023-01-09] MEDS: LEVOTHYROXINE 25 MCG TAB PO SCH (09:14)
[2023-01-09 09:16] LABS: Blood Urea Nitrogen 11.6 mg/dL (9.0-27.0); Glucose 201 mg/dL (70-110)
[2023-01-09 09:17] LABS: Calcium 8.6 mg/dL (8.7-10.3); Carbon Dioxide 20.1 mmol/L (21.6-31.8); Chloride 107 mmol/L (96-109); Potassium 4.4 mmol/L (3.5-5.5); Sodium 141 mmol/L (135-145)
[2023-01-09 09:27] LABS: Basophils # (A) 0.01 X 10*3/uL (0.00-0.10); Basophils % (A) 0.2 %; Eosinophils # (A) 0 X 10*3/uL (0.04-0.35); Eosinophils % (A) 0 %; HCT 31.8 % (37.2-46.3); HGB 9.5 d/dL (12.0-15.0); Lymphocytes # (A) 0.61 X 10*3/uL (0.90-5.00); Lymphocytes % (A) 9.2 %; MCH 27.8 pg (27.0-32.0); MCHC 29.9 d/dL (32.0-37.0); Mean Platelet Volume 10.8 FL (9.5-12.2); Monocytes # (A) 0.19 X 10*3/uL (0.20-1.00); Monocytes % (A) 2.9 %; NRBC Per 100 WBC 0 X 10*3/uL (0.00-0.01); Neutrophils % (A) 86.9 %; Platelet Count 141 X 10*3/uL (140-440); RBC 3.42 X 10*6/uL (4.10-5.20); RDW 18.4 % (11.5-14.5); WBC 6.66 X 10*3/uL (4.50-10.00)
[2023-01-09] MEDS: ENOXAPARIN 40 MG/0.4 ML SYRINGE SQ SCH (09:33)
--- NOTE | 2023-01-09 09:36 | P.HPOR ---
History of Present Illness H&P Date: 01/09/23 Chief Complaint: Fall with right hip pain History of Presenting Illness Patient is a pleasant 77-year-old female who was transferred from [place] as she is a [facility] resident for a right hip fracture. Patient fell yesterday tr ipping over her daughters dog and landing on her right hip. Patient states she did not hit her head or lose consciousness. Patient is on Plavix and Xarelto. 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 Patient denies any orthopedic history. Patient seen and examine this morning. Patient is resting comfortable in bed. Spouse is at bedside. Informed patient and family member of scheduled procedure today, all questions and concerns been answered. Patient has remained nothing by mouth since midnight. Patient reports her last dose of Plavix and Xarelto were taken on 01/07/23. CT imaging obtained at the outside hospital revealed a right femoral intertrochanteric fracture. Review of Systems Pertinent positives and negatives as discussed in HPI, a complete review of systems was performed and all other systems are negative. Physical Examination Inspection: Negative for any open fractures, ecchymosis, significant erythema/ulcers. Patient does present with slight bruising to the right lower extremity over the right hip. Right lower extremity is externally rotated. Sensation: Sensation is equal, symmetric, bilaterally intact throughout the upper and lower extremities Palpation: Nontender to palpation throughout bilateral upper and left lower extremities and throughout spine exam. TTP over the right hip region. Range of motion: Patient does have full range of motion bilateral upper and left lower extremities on exam. Limited ROM to the right lower extremity due to fracture and pain. Motor: 5/5 in all major motor groups in the bilateral upper and left lower extremities, 4/5 right lower extremity Special tests: Negative Homans bilaterally. Negative Moris bilaterally. Negative clonus bilaterally. Neurovascular: Radial pulse intact, 2+ bilaterally. Cap refill under 3 seconds in digits upper extremities. Assessment and Plan Fall with trauma Right IT fracture Multiple comorbidities -Remain NPO -Surgical intervention planned for this afternoon 01/09/23 Right hip IM nail -Continue with pain management, IV dilaudid and [place], ice prn. -Hold anticoagulation. -Maintain hughes catheter. -NWB RLE at this time. I reviewed and discussed this case with my attending Dr. Hidalgo, whom has reviewed this chart and films and is in agreement with assessment and plan of care as outlined above. I have personally seen and examined the patient, performed the documentation and the assessment and plan as written. Number of minutes spent on the visit: 20m. Past Medical History Past Medical History: Asthma, COPD, Deep Vein Thrombosis (DVT), Hyperlipidemia, Hypertension History of Any Multi-Drug Resistant Organisms: None Reported Past Surgical History: Heart Catheterization With Stent Additional Past Surgical History / Comment(s): 2 heart stents, 2 R Upper leg stents, 1 R iliac stent (all MRI compatible) Past Anesthesia/Blood Transfusion Reactions: No Reported Reaction Date of Last Stent Placement:: 2018 Past Psychological History: No Psychological Hx Reported Smoking Status: Former smoker Past Alcohol Use History: None Reported Past Drug Use History: None Reported Medications and Allergies Home Medications Medication Instructions Recorded Confirmed Type Clopidogrel [Plavix] 75 mg PO DAILY 01/08/23 01/08/23 History Ferrous Sulfate [Feosol] 325 mg PO DAILY 01/08/23 01/08/23 History Fluticasone/Umeclidin/Vilanter 1 puff INHALATION RT-DAILY PRN 01/08/23 01/08/23 History [Trelegy Ellipta 100-62.5-25] Levothyroxine Sodium [Synthroid] 25 mcg PO DAILY 01/08/23 01/08/23 History Nebivolol HCl 10 mg PO HS 01/08/23 01/08/23 History Pregabalin [Lyrica] 75 - 150 mg PO Q8H PRN 01/08/23 01/08/23 History Rivaroxaban [Xarelto] 2.5 mg PO BID 01/08/23 01/08/23 History Rosuvastatin Calcium [Crestor] 40 mg PO HS 01/08/23 01/08/23 History Sertraline [Zoloft] 100 mg PO DAILY 01/08/23 01/08/23 History Allergies Allergy/AdvReac Type Severity Reaction Status Date / Time No Known Allergies Allergy Verified 01/08/23 16:45 Results - Labs Labs: Abnormal Lab Results - Last 24 Hours (Table) 01/08/23 01/08/23 Range/Units 15:02 15:02 RBC 3.52 L (3.80-5.40) m/uL Hgb 10.4 L (11.4-16.0) gm/dL Hct 32.1 L (34.0-46.0) % RDW 18.4 H (11.5-15.5) % Lymphocytes # 0.8 L (1.0-4.8) k/uL Chloride 109 H (98-107) mmol/L Glucose 105 H (74-99) mg/dL H & H 01/08/23 Range/Units 15:02 Hgb 10.4 L (11.4-16.0) gm/dL Hct 32.1 L (34.0-46.0) % Coagulation 01/08/23 Range/Units 15:02 INR 1.1 (<1.2) Result Diagrams: 01/09/23 05:59 01/09/23 05:59
--- NOTE | 2023-01-09 09:52 | P.CRDCN ---
History of Present Illness Consult date: 01/09/23 Reason for Consult (text): Cardiac clearance for surgery History of present illness: History of present illness: This is a 77-year-old female patient with past medical history of coronary artery disease with previous stents 2 last one being a couple years ago, peripheral arterial disease with stents in the right lower extremity 3, COPD, history of CVA 5 years ago, hypertension, hyperlipidemia, hypothyroidism, history of remote smoking and quit 25 years ago. She denies history of heart failure. Patient is from [place] and follows with a credit operations specialist there. Patient is on low-dose Xarelto for PVD. Patient was vacationing in [place] and had a fall tripping over a dog landing on her right hip and subsequently found to have a right femoral intertrochanteric fracture. She has been admitted to the hospital by orthopedics with plan for surgical intervention later today. Patient denies having any chest pain. She states she has difficulty walking up a flight of stairs due to her peripheral artery disease not due to shortness of breath. She does not experience chest pain when she is ambulating. EKG sinus rhythm with no acute ST changes. Chest x-ray: Chronic changes without acute pulmonary process. CAT scan of the brain revealed age-related atrophy and chronic small vessel ischemic change. WBC 6.6, hemoglobin 9.5, platelet count 141. INR 1.1. Sodium 141, potassium 4.4, UN 11, creatinine 0.8. Covid 19 not detected. Glucose 201. Calcium 8.6. Home cardiac medications: Plavix 75 mg daily, ferrous sulfate 325 mg daily, Synthroid 25 g daily, nebivolol 10 mg at bedtime, Xarelto 2.5 mg twice daily, Crestor 40 mg at bedtime. Review Of Systems: At the time of my evaluation: Constitutional: No fever, no chills. No weakness, fatigue or lethargy. EENT: No headache. No dizziness. Lungs: No shortness of breath, cough, no sputum production. No wheezing. Cardiovascular: No chest pain, no lower extremity edema. No palpitations. No paroxysmal nocturnal dyspnea. No orthopnea. No lightheadedness or dizziness. No syncopal episodes. Abdominal: No abdominal pain. No nausea, vomiting. No diarrhea. No bloody or tarry stools. Musculoskeletal: No myalgias. No muscle weakness, no frequent falls. No back pain. No neck pain. Right hip discomfort. Integumentary: No wounds. No rash. No unusual bruising. Neurologic: No aphasia. No facial droop. No change in mentation. No head injury. No headache. Physical examination: Gen: This is a 77-year-old female. She is resting in bed and appears to be comfortable at rest. No acute respiratory distress noted. VS: reviewed HEENT: Head is atraumatic, normocephalic. Pupils equal, round. Sclerae is anicteric. NECK: Supple. No JVD. . LUNGS: Clear to auscultation. No wheezes or rhonchi. No intercostal retractions. HEART: Regular rate and rhythm. No murmur. ABDOMEN: Soft No tenderness. EXTREMITIES: No pedal edema. No calf tenderness. NEUROLOGICAL: Patient is awake, alert and oriented x3. Assessment: Right femoral intertrochanteric fracture secondary to mechanical trip and fall Coronary artery disease with previous stenting Peripheral artery disease with previous stenting Hypertension Hyperlipidemia Hypothyroidism Remote history of tobacco use and quit 25 years ago Plan: Hold Xarelto and Plavix Continue patient's home cardiac medications Obtain stat 2-D echocardiogram and Doppler study to assess cardiac structure and function which will be reviewed this morning Due to patient's underlying coronary artery disease and peripheral artery disease along with COPD, patient is at moderate to high risk for perioperative complication. She is also at increased risk for bleeding due to being on Xarelto and Plavix. Patient is cleared for surgical intervention however advise caution fluid administration. Further recommendations to follow based upon clinical course Thank you kindly for this consultation. Nurse practitioner note has been reviewed, I agree with documented findings and plan of care. Patient was seen and examined. Past Medical History Past Medical History: Asthma, COPD, Deep Vein Thrombosis (DVT), Hyperlipidemia, Hypertension History of Any Multi-Drug Resistant Organisms: None Reported Past Surgical History: Heart Catheterization With Stent Additional Past Surgical History / Comment(s): 2 heart stents, 2 R Upper leg stents, 1 R iliac stent (all MRI compatible) Past Anesthesia/Blood Transfusion Reactions: No Reported Reaction Date of Last Stent Placement:: 2018 Past Psychological History: No Psychological Hx Reported Smoking Status: Former smoker Past Alcohol Use History: None Reported Past Drug Use History: None Reported Medications and Allergies Home Medications Medication Instructions Recorded Confirmed Type Clopidogrel [Plavix] 75 mg PO DAILY 01/08/23 01/08/23 History Ferrous Sulfate [Feosol] 325 mg PO DAILY 01/08/23 01/08/23 History Fluticasone/Umeclidin/Vilanter 1 puff INHALATION RT-DAILY PRN 01/08/23 01/08/23 History [Trelegy Ellipta 100-62.5-25] Levothyroxine Sodium [Synthroid] 25 mcg PO DAILY 01/08/23 01/08/23 History Nebivolol HCl 10 mg PO HS 01/08/23 01/08/23 History Pregabalin [Lyrica] 75 - 150 mg PO Q8H PRN 01/08/23 01/08/23 History Rivaroxaban [Xarelto] 2.5 mg PO BID 01/08/23 01/08/23 History Rosuvastatin Calcium [Crestor] 40 mg PO HS 01/08/23 01/08/23 History Sertraline [Zoloft] 100 mg PO DAILY 01/08/23 01/08/23 History Allergies Allergy/AdvReac Type Severity Reaction Status Date / Time No Known Allergies Allergy Verified 01/08/23 16:45 Physical Exam Vitals: Vital Signs Temp Pulse Pulse Resp BP BP Pulse Ox 01/09/23 09:17 70 01/09/23 09:11 92 L 01/09/23 09:04 70 01/09/23 07:17 97.9 F 72 18 186/58 91 L 01/09/23 02:00 97.9 F 66 17 124/55 94 L 01/08/23 21:01 74 01/08/23 20:51 72 01/08/23 19:31 98.2 F 71 18 153/66 90 L 01/08/23 18:17 71 18 132/45 90 L 01/08/23 17:30 74 18 113/62 93 L 01/08/23 15:52 77 18 01/08/23 15:47 75 18 01/08/23 14:39 98.3 F 73 18 119/40 92 L Intake and Output 01/08/23 01/09/23 01/09/23 22:59 06:59 14:59 Output Total 1100 Balance -1100 Output: Urine 1100 Other: Voiding Method Indwelling Catheter Weight 67.585 kg Results 01/09/23 05:59 06/26/23 05:59 Coagulation 01/08/23 Range/Units 15:02 PT 11.0 (9.0-12.0) sec APTT 23.7 (22.0-30.0) sec CBC 01/08/23 01/09/23 Range/Units 15:02 05:59 WBC 7.2 6.66 (3.8-10.6) k/uL RBC 3.52 L 3.42 L (3.80-5.40) m/uL Hgb 10.4 L 9.5 L (11.4-16.0) gm/dL Hct 32.1 L 31.8 L (34.0-46.0) % Plt Count 155 141 (150-450) k/uL Comprehensive Metabolic Panel 01/08/23 01/09/23 Range/Units 15:02 05:59 Sodium 137 141 (137-145) mmol/L Potassium 4.3 4.4 (3.5-5.1) mmol/L Chloride 109 H 107 (98-107) mmol/L Carbon Dioxide 22 20.1 L (22-30) mmol/L BUN 14 11.6 (7-17) mg/dL Creatinine 0.75 0.8 (0.52-1.04) mg/dL Glucose 105 H 201 H (74-99) mg/dL Calcium 8.5 8.6 L (8.4-10.2) mg/dL Current Medications Generic Name Dose Route Start Last Admin Trade Name Freq PRN Reason Stop Dose Admin Acetaminophen 650 mg 01/08/23 16:20 Acetaminophen Tab 325 Mg Tab PO Q6HR PRN Mild Pain or Fever > 100.5 Hydrocodone Bitart/Acetaminophen 1 each 01/08/23 19:55 Hydrocodone/Apap 5-325mg 1 Each Tab PO Q4HR PRN Pain Hydrocodone Bitart/Acetaminophen 1 each 01/08/23 19:55 01/09/23 02:43 Hydrocodone/Apap 7.5-325mg 1 Each Tab PO 1 each Q6HR PRN Administration Pain Albuterol/Ipratropium 3 ml 01/08/23 18:14 Ipratropium-Albuterol 3 Ml Neb INHALATION RT-QID PRN Shortness Of Breath Or Wheezing Albuterol/Ipratropium 3 ml 01/09/23 08:00 01/09/23 09:03 Ipratropium-Albuterol 3 Ml Neb INHALATION 3 ml RT-QID JOSIE Administration Atorvastatin Calcium 80 mg 01/08/23 21:00 01/08/23 20:30 Atorvastatin 80 Mg Tab PO 80 mg HS JOSIE Administration Budesonide/Formoterol Fumarate 2 puff 01/09/23 08:00 01/09/23 09:03 Symbicort 160-4.5 Mcg Inhaler INHALATION 2 puff RT-BID JOSIE Administration Enoxaparin Sodium 40 mg 01/09/23 09:00 01/09/23 09:33 Enoxaparin 40 Mg/0.4 Ml Syringe SQ Not Given DAILY JOSIE Famotidine 20 mg 01/09/23 09:00 01/09/23 09:14 Famotidine 20 Mg Tab PO 20 mg DAILY JOSIE Administration Hydromorphone HCl 0.5 mg 01/08/23 16:20 01/08/23 18:20 Hydromorphone 0.5 Mg/0.5 Ml Syringe IVP 0.5 mg Q3HR PRN Administration Moderate Pain (Scale 4 to 6) Hydromorphone HCl 1 mg 01/08/23 19:55 01/09/23 05:43 Hydromorphone 1 Mg/Ml 1 Ml Syringe IVP 1 mg Q4HR PRN Administration Pain Sodium Chloride 1,000 mls @ 75 mls/hr 01/08/23 16:30 01/09/23 06:09 Saline 0.9% IV 75 mls/hr .[id number] JOSIE Administration Levothyroxine Sodium 25 mcg 01/09/23 09:00 01/09/23 09:14 Levothyroxine 25 Mcg Tab PO 25 mcg DAILY JOSIE Administration Methylprednisolone Sodium Succinate 60 mg 01/09/23 00:00 01/09/23 05:42 Methylprednisolone Sod Succi 125 Mg/2 Ml Vial IV 60 mg Q6HR JOSIE Administration Naloxone HCl 0.2 mg 01/08/23 16:20 Naloxone 0.4 Mg/Ml 1 Ml Vial IV Q2M PRN Opioid Reversal Nebivolol 10 mg 01/08/23 21:00 01/08/23 20:30 Nebivolol 5 Mg Tab PO 10 mg HS JOSIE Administration Ondansetron HCl 4 mg 01/08/23 19:56 Ondansetron 4 Mg/2 Ml Vial IVP Q6HR PRN Nausea And Vomiting Sertraline HCl 100 mg 01/09/23 09:00 01/09/23 09:14 Sertraline 100 Mg Tab PO 100 mg DAILY JOSIE Administration Intake and Output 01/08/23 01/09/23 01/09/23 22:59 06:59 14:59 Output Total 1100 Balance -1100 Output: Urine 1100 Other: Voiding Method Indwelling Catheter Weight 67.585 kg 01/09/23 05:59 01/09/23 05:59
--- NOTE | 2023-01-09 10:36 | CA ---
Transthoracic Echo Report Name: Maryjo Hernandez Age: 77 Gender: F : 1945 Exam Date: 01/09/2023 08:30 Exam Location: [place] [facility] Ht (in): 62 Wt (lb): 149 Ordering Physician: Jethro Le MD Attending/Referring Phys: Studio Technician Video Operator Maria De Jesus Fuchs [facility] Procedure CPT: Indications: sob Cardiac Hx: Technical Quality: Fair Contrast 1: Total Dose (mL): Contrast 2: Total Dose (mL): MEASUREMENTS (Male / Female) Normal Values 2D ECHO LV Diastolic Diameter PLAX 5.0 cm 4.2 - 5.9 / 3.9 - 5.3 cm LV Systolic Diameter PLAX 3.1 cm IVS Diastolic Thickness 0.8 cm 0.6 - 1.0 / 0.6 - 0.9 cm LVPW Diastolic Thickness 0.8 cm 0.6 - 1.0 / 0.6 - 0.9 cm LV Relative Wall Thickness 0.3 Ascending Aorta Diameter 2.9 cm M-MODE Aortic Root Diameter MM 2.8 cm LA Systolic Diameter MM 3.7 cm LA Ao Ratio MM 1.3 AV Cusp Separation MM 1.6 cm DOPPLER AV Peak Velocity 141.5 cm/s AV Peak Gradient 8.0 mmHg AV Mean Velocity 112.1 cm/s AV Mean Gradient 5.4 mmHg AV Velocity Time Integral 42.3 cm LVOT Peak Velocity 115.3 cm/s LVOT Peak Gradient 5.3 mmHg LVOT Velocity Time Integral 33.7 cm Mitral E Point Velocity 135.6 cm/s Mitral A Point Velocity 96.8 cm/s Mitral E to A Ratio 1.4 MV Deceleration Time 165.8 ms LV E' Lateral Velocity 10.2 cm/s Mitral E to LV E' Lateral Ratio 13.3 LV E' Septal Velocity 5.7 cm/s Mitral E to LV E' Septal Ratio 23.9 TR Peak Velocity 258.9 cm/s TR Peak Gradient 26.8 mmHg Right Atrial Pressure 15.0 mmHg Pulmonary Artery Systolic Pressu 41.8 mmHg Right Ventricular Systolic Press 41.8 mmHg FINDINGS Left Ventricle Normal left ventricular systolic function with no obvious regional wall motion abnormalities. Left ventricular cavity size at the upper limits of normal. Left ventricular ejection fraction is estimated at 60%. Right Ventricle Normal right ventricular size. Moderate pulmonary hypertension. Right Atrium Mild right atrial dilatation. Left Atrium Severe left atrial dilatation. Mitral Valve Structurally normal mitral valve. Mild mitral regurgitation. Aortic Valve Trileaflet aortic valve. No aortic valve stenosis or regurgitation. Tricuspid Valve Structurally normal tricuspid valve. Mild tricuspid regurgitation. Pulmonic Valve Pulmonic valve not well visualized. Pericardium No pericardial effusion. Aorta Normal size aortic root and proximal ascending aorta. CONCLUSIONS Normal LV size and systolic function with mild concentric LVH. Left atrium is significantly enlarged. There is mitral calcification mild mitral regurgitation. No pericardial effusion. Mild pulmonary hypertension Previewed by: Dr. Cristobal Bean MD (Electronically Signed) Final Date: 09 January 2023 10:35
--- NOTE | 2023-01-09 14:58 | P.PN ---
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 Patient reports tripping over her dog bowl. She denies any loss of consciousness. She currently rates her pain 8 out of 10 in severity. Patient is originally from [place] and follows a vascular surgeon and medical records analyst. She currently denies any chest pain. She reports shortness of breath and wheezing. She is not on any home oxygen. She is unable to describe her exercise tolerance as her mobility is quite limited due to her PAD and herniated disc in the back. In the ED, she was requiring 4 L nasal cannula to maintain O2 saturation in the low 90s. Chest x-ray showed chronic reticulonodular changes with no acute process. CT brain showed chronic small vessel ischemic changes without acute intracranial process. CBC shows hemoglobin of 10.4 with MCV of 91.3. Coagulation panel within normal limits. BMP shows chloride 109 and glucose 105. Patient is admitted under orthopedic surgery with [facility] on consultation. 01/09 Patient was seen and examined. at bedside. She reports well controlled right hip pain. reports occasional confusion due to pain medication. Currently 91% on 3L NC. CBC shows Hg 9.5. BMP shows bicarb of 20.1, anion gap of 13.9, glucose of 201 and Ca 8.6. EKG shows NSR with ventricular ra te of 71. Echocardiogram shows EF 60% with mild concentric LVH, LA enlargement, mild MR, mild pulmonary HTN. 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 Patient has an acute diagnosis of right intertrochanteric fracture that poses a threat to life or bodily function. This is also complicated by COPD exacerbation. She currently is requiring 3 L cannula to maintain O2 saturation greater than 92%. Patient is above average risk for serious complications including pneumonia, cardiac complications and . Patient will be placed on telemetry monitoring. Hold Xarelto and Plavix for now. Pulmonology on board. Cardiology cleared the patient for surgery. I would recommend perioperative telemetry monitoring. Bronchodilators: DuoNeb 0.5mg-3mg/3ml scheduled and as needed for SOB and wheezing. Symbicort 2 puff BID. Spiriva 1 puff daily. Steroids: SoluMedrol 40 mg IV BID. Supplemental oxygen to maintain O2 > 92%. Lovenox SQ for DVT prophylaxis. Patient names her decision maker if she can't make decisions for herself. Patient would like to be full code. I have reviewed the following wealth management consultant notes: I have reviewed the results of the following tests: CBC, BMP, Echocardiogram. I have ordered the following tests: CBC ordered for tomorrow morning. I have discussed the care of this patient with the following independent il storian: I have independently interpreted the following test below: EKG as above. I have discussed the management of this patient with the following physician: Objective - Vital Signs Vital signs: Vital Signs Temp 97.3 F L 01/09/23 14:02 Pulse 72 01/09/23 14:02 Resp 17 01/09/23 14:02 BP 149/52 01/09/23 14:02 Pulse Ox 91 L 01/09/23 14:02 FiO2 Intake & Output 01/08/23 01/09/23 01/09/23 18:59 06:59 18:59 Output Total 1100 Balance -1100 Weight 67.585 kg 67.585 kg Output: Urine 1100 Other: Voiding Method Indwelling Catheter Indwelling Catheter - Labs CBC & Chem 7: 01/09/23 05:59 01/09/23 05:59 Labs: Abnormal Lab Results - Last 24 Hours (Table) 01/08/23 01/08/23 01/09/23 Range/Units 15:02 15:02 05:59 RBC 3.52 L 3.42 L (3.80-5.40) m/uL Hgb 10.4 L 9.5 L (11.4-16.0) gm/dL Hct 32.1 L 31.8 L (34.0-46.0) % MCHC 29.9 L (32.0-37.0) d/dL RDW 18.4 H 18.4 H (11.5-15.5) % Lymphocytes # 0.8 L 0.61 L (1.0-4.8) k/uL Monocytes # 0.19 L (0.20-1.00) X 10*3/uL Eosinophils # 0 L (0.04-0.35) X 10*3/uL Chloride 109 H (98-107) mmol/L Carbon Dioxide (21.6-31.8) mmol/L Anion Gap (4.00-12.00) mmol/L Glucose 105 H (74-99) mg/dL Calcium (8.7-10.3) mg/dL 01/09/23 Range/Units 05:59 RBC (3.80-5.40) m/uL Hgb (11.4-16.0) gm/dL Hct (34.0-46.0) % MCHC (32.0-37.0) d/dL RDW (11.5-15.5) % Lymphocytes # (1.0-4.8) k/uL Monocytes # (0.20-1.00) X 10*3/uL Eosinophils # (0.04-0.35) X 10*3/uL Chloride (98-107) mmol/L Carbon Dioxide 20.1 L (21.6-31.8) mmol/L Anion Gap 13.90 H (4.00-12.00) mmol/L Glucose 201 H (74-99) mg/dL Calcium 8.6 L (8.7-10.3) mg/dL
[2023-01-09] MEDS ORDERED: LACTATED RINGERS 1,000 ML IV ONE (15:04)
--- NOTE | 2023-01-09 15:21 | P.PN ---
Progress Note - Text Progress Note Date: 01/09/23 Patient seen and examined, I reviewed the note, discussed the case with the WOOD MILLING MACHINE HAND first hand and agree with the assessment and plan of Rhonda Cardozo NP. Please see my notes below for any additional recommendations. Orthopedic Surgery Risk Review Karely Hernandez is a 77-year-old female presenting for evaluation of sudden onset right hip pain, inability to ambulate after . On standing. It was my pleasure to have seen and examined Karely Hernandez. In our visit today we have had a chance to go over subjective complaints, physical examination findings and treatments including the natural course history without intervention and various interventional options. her imaging demonstrates right hip intertrochanteric fracture two-part. On physical exam, Karely Roldanendemonstrates pain with motion of right lower extremity, which is NV intact at this time. I have explained to the patient that this fracture needs stabilization. Based on the patients imaging, physical exam, and the rapid progression and disabling nature of her symptoms, at this time I recommend surgery in the form or a: right hip intramedullary nail fixationI discussed the risk and benefits of this procedure at length with Karely Hernandez. Questions were invited and answered, and the patient wishes to proceed as outlined below. Currently, I am recommendin. right hip intramedullary nail fixation 2. Review of surgical risks and benefits as well as an educational packet on the proposed surgical procedure. Risks: All surgical procedures come with inherent risks, including those related to positioning, anesthesia, intraoperative findings, and postoperative complications. It is important to understand that surgery does not come with any guarantee of a successful outcome as complications and adverse events are always possible. The patient was given a handout discussing the surgical procedure and risks associated with the intervention, both of which were discussed with the patient. These risks include but are not limited to the following: - Experiencing same, different or even worse symptoms compared to before surgery. - Requiring further surgery or other forms of treatment presently or at some time in the future . - On an extreme but fortunately relatively rare basis severe complication such as blindness, stroke, heart attack, temporary and/or permanent nerve injury, paralysis, coma, or may occur, sometimes without known explanation. - Surgical complications may include but are not limited to risk of infection, fluid accumulation in the surgical dissection site, including a seroma or hematoma, that requires additional surgery, wound drainage, bleeding, new numbness or weakness, vision changes/loss, spinal fluid leakage, non-healing and/or infected incision, headaches, difficulty or inability to swallow, hoarseness, hemopneumothorax, pneumothorax, injury to nerves, spinal cord, blood vessels, lymphatics or other vital organs (i.e., bowel injury, injury to the great vessels); heterotopic bone formation; complications related to the hardware such as screws, rods, including misplaced hardware, device failure, hardware fracture/breakage, or hardware loosening; retained surgical instrumentations or devices and the need for further surgery. - Medical risks of the planned surgery include but are not limited to generalized Infections to the whole body or local areas outside of the surgical site (sepsis), heart attack, bleeding, anaphylaxis, meningitis, seizure, epilepsy, hearing loss, burn driscoll, laceration of the head or other areas of the body, bruising, hypersensitivity of the skin, bladder over distension; allergic reaction; shoulder injury related to positioning; fat, blood and air clots to other areas of the body like heart, lungs, brain; failure of internal organs such as lungs, kidneys, liver and excessive bleeding. If blood transfusions are necessary, note that transfusions may cause intolerance reactions such as anaphylaxis or other complex reactions. Despite best efforts, the results of surgery might not heal in terms of bone, soft tissues such as skin, fascia, ligaments, and joints. [facility] has multiple operating rooms with single and overlapping rooms running daily. They currently function under the required guidelines as produced by the Senate [employer] Committee with regards to the overlapping rooms and will continue to comply with changes to this policy as they occur. The requirements include and are complied with as follows: (1) the critical portions of the overlapping rooms will not occur at the same time, (2) the attending physician will be physically present during the critical portions of the procedure and immediately available during the entire case, and (3) a back-up attending is designated should the primary attending not be immediately neil ilable. The patient has had a chance to review all the listed information, has been given print outs detailing this information, and has had all his/her questions answered to their satisfaction. It was my pleasure to have seen and examined Karely Hernandez. In our visit today we have had a chance to go over my understanding of our patient's current condition, the natural course history without intervention and various interventional options. Questions were invited and answered, and the patient wishes to proceed as outlined above. I have seen and examined the patient for 25 minutes and we have spent more than 50% of the time in repeat and detailed counseling about the patient's condition, its natural course history with out and as much as can be predicted with surgery and re-review of various surgical treatment options. In conclusion,Karely Hernandezrequested we proceed with the above suggested surgery and are willing to accept risks and limitations of the suggested surgery as nature of the disease process and our best attempts at treatment for the condition. Thank you again for allowing us to be part of your patient's care. Please don't hesitate to contact me if you have any further questions. Signed and authenticated by: Yovany Hackett [facility] [address] [facility], [address] [address]
[2023-01-09] MEDS ORDERED: TRANEXAMIC 1,000 MG/100ML-NACL 1,000 MG in SALINE 1 100ML.BAG IVPB ONE ×2 (15:45→16:00)
[2023-01-09] MEDS ORDERED: fentaNYL (PF) 50 MCG/ML 2 ML AMP IVP ONE (16:33)
[2023-01-09] MEDS ORDERED: MAGNESIUM HYDROXIDE 2,400 MG/30 ML CUP PO PRN (19:18)
[2023-01-09] MEDS ORDERED: HYDROmorphone 0.5 MG/0.5 ML SYRINGE IVP PRN ×2 (19:18)
[2023-01-09] MEDS ORDERED: NALOXONE 0.4 MG/ML 1 ML VIAL IV PRN (19:18)
[2023-01-09] MEDS ORDERED: ROCURONIUM 10 MG/ML (5 ML VIAL) IV ONE (19:21)
[2023-01-09] MEDS ORDERED: TRANEXAMIC 1,000 MG/100ML-NACL PREMIX BAG ONE (19:21)
[2023-01-09] MEDS ORDERED: NEOSTIGMINE 1 MG/ML 10 ML VIAL ONE (19:21)
[2023-01-09] MEDS ORDERED: PROPOFOL 10 MG/ML 20 ML VIAL IV ONE (19:21)
[2023-01-09] MEDS ORDERED: SUCCINYLCHOLINE CHLORIDE 200 MG/10 ML VIAL IV ONE (19:21)
[2023-01-09] MEDS ORDERED: LIDOCAINE 2% INJ 20 MG/ML (2 ML VIAL) ONE (19:21)
[2023-01-09] MEDS ORDERED: fentaNYL (PF) 50 MCG/ML 2 ML AMP ONE (19:21)
[2023-01-09] MEDS ORDERED: MIDAZOLAM 2 MG/2 ML VIAL ONE (19:21)
[2023-01-09] MEDS ORDERED: GLYCOPYRROLATE 0.2 MG/ML 2 ML VIAL ONE (19:21)
--- NOTE | 2023-01-09 20:32 | P.OP ---
Date of Procedure: 01/09/23 Preoperative Diagnosis: 1. Right peritrochanteric, IT fracture 2. sp FFS Postoperative Diagnosis: 1. Right peritrochanteric, IT fracture 2. sp FFS Procedure(s) Performed: 1. Right hip IMN fixation Implants: Claros and nephew [id number] 95/90 lag/compress Anesthesia: GETA, spinal Surgeon: Yovany Hidalgo Flight Line Mechanic #1: Zach Powers Estimated Blood Loss (ml): 100 IV fluids (ml): 500 Urine output (ml): 400 Pathology: none sent Condition: stable Disposition: PACU Indications for Procedure: Karely Hernandez is a 77-year-old female presenting for evaluation of sudden onset right hip pain, inability to ambulate after . On standing. It was my pleasure to have seen and examined Karely Hernandez. In our visit today we have had a chance to go over subjective complaints, physical examination findings and treatments including the natural course history without intervention and various interventional options. her imaging demonstrates right hip intertrochanteric fracture two-part. On physical exam, Karely Roldanendemonstrates pain with motion of right lower extremity, which is NV intact at this time. I have explained to the patient that this fracture needs stabilization. Based on the patients imaging, physical exam, and the rapid progression and disabling nature of her symptoms, at this time I recommend surgery in the form or a: right hip intramedullary nail fixationI discussed the risk and benefits of this procedure at length with Karely Hernandez. Questions were invited and answered, and the patient wishes to proceed as outlined below. Currently, I am recommendin. right hip intramedullary nail fixation Description of Procedure: Right hip short IMN The patient was seen and examined in the preoperative area. All preoperative protocols were followed. Informed consent was obtained risks and benefits of the procedure were discussed at length. Risks including bleeding infection damage to the surrounding tissue and risk of reoperation were discussed with the patient. Risk of anesthesia up to and including was a discussed with the patient. These are outlined in the risk reviewed. They were willing to accept these risks and all of the risks of surgery. The patient was given a weight- based dose of antibiotics in the form of 2 g Ancef. The patient was seen and evaluated by the anesthesia team who deemed them fit for surgery. The site was marked, the patient was willing to proceed with the procedure. The patient was transferred to the operative suite by the Department of anesthesia. There were then drifted off to sleep by the department of anesthesia andGETA anesthesia was used. Once adequate anesthesia had been obtained the patient was carefully transferred to the operative bed. All bony prominences were padded accordingly. SCDs were placed on the nonoperative lower extremities. Arms were well padded. the patient was transferred to the Telma table and her right leg was placed in a Telma boot and secured to the table left leg was placed in a well-leg morrissey well padded and secured. The post was placed and she was secured appropriately. arms were placed on arm boards and well-padded Preoperative briefing was done with the operative team and everyone was ready for the procedure to start. Xray used to reduce the fracture with Telma table. The patients right leg was then prepped and draped in the normal sterile fashion. Timeout was then performed and all parties in agreement with the procedure to be performed. X-ray was then used to adrien 2 cm proximal to the GT. Skin incision made in line with the femur and blunt dissection taken down to the deep facia which was spli t. Blut dissetion then taken down to the tip of the GT and the sharp awl used. Optimal starting point achieved on AP and Lateral imaging. Awl was then advaced into the proximal femur. Ball tip guidewire was then passed into the femur. It was confirmed on Ap and laterl. Opening reamer then passed followed by 9, 11 and 13 mm reamers. Then the nail was selected and impacted into place over the wire using flouroscopic guidance. Once in position the lateral guide was placed and skin incisoin made in line with the femur over the lateral aspect. Dissection taken down through the tensor facia which was split inline with its fibers. The guide was seated against bone. Pin was placed through guide for the lag screw to be with in 10mm on Ap and lateral of the subchondarl bone. This was then measured. Appropriate sized compression screw then selected and drilled. Then the lag screw drilled. Lag screw placed over the wire followed by the compression screw. About 7 mm of compression was achieved. Good alignment in AP and lateral shown. The nail was then locked proximally. Distal locking screw was then placed through the jig using similar technique. Screw was drilled and measured and placed. AP and lateral confirmed good placement and good fracture reduction as well as stability in ROM. The guid was then removed from the nail. The wound was then copiously irrigated with normal sterile saline final AP and lateral fluoroscopic imaging confirmed good placement of pins as well as reduction of fracture. The deep fascia was then closed with 0 Vicryl superficial closed 2-0 Vicryl and skin closed with skin mar the wound edges approximated very well. The wound was then cleaned and dressed with an optifoam dressing. The patient was then transferred back to their hospital bed. There were awakened by department of anesthesia having tolerated the procedure very well with no complications. The patient was then transported to the postoperative care unit in stable condition.
[2023-01-09] MEDS ORDERED: ALBUTEROL NEBULIZED 2.5 MG/3 ML INHALATION ONE ×2 (20:40→21:10)
--- NOTE | 2023-01-09 21:40 | XR ---
Fluoroscopy History: RIGHT IT NAILING right IT hip nailing. fluoro time 50 seconds. 5.4028 DAP[address] Hidalgo.
[2023-01-09 22:00] LABS: Glucose,Whole Blood 215 mg/dL (70-110)
[2023-01-09] MEDS: DEXMEDETOMIDINE/0.9% NACL(PMX) 400 MCG in EMPTY BAG 1 BAG IV SCH (22:15)
--- NOTE | 2023-01-09 22:36 | FL ---
EXAMINATION TYPE: FL guidance operating room DATE OF EXAM: 01/09/2023 CLINICAL HISTORY: Right hip fracture. TECHNIQUE: Fluoroscopy. COMPARISON: None. FINDINGS: Fluoroscopic guidance was provided during procedure performed by Dr. Hidalgo. A total of 50 seconds of fluoroscopic time was utilized during the procedure and 7 spot images was acquired. Total dose area product (DAP) in uGy*m?, mGy*cm? (or similar: 5.4028. IMPRESSION: As Above.
[2023-01-09 22:37] LABS: ABG Base Excess -6.9 mmol/L; ABG HCO3 19 mmol/L (21-25); ABG Oxygen Saturation 98.3 % (94-97); ABG PCO2 34 mmHg (35-45); ABG PH 7.35 (7.35-7.45); ABG PO2 103 mmHg (83-108); ABG TCO2 20 mmol/L (19-24); Allen Test Performed? Yes
[2023-01-09] MEDS ORDERED: LACTATED RINGERS 1,000 ML IV SCH (23:30)
[2023-01-09] MEDS: SENNOSIDES-DOCUSATE SODIUM 1 EACH TAB PO SCH (23:50)
[2023-01-09] MEDS: NEBIVOLOL 5 MG TAB PO SCH (23:50)
[2023-01-09] MEDS: ATORVASTATIN 80 MG TAB PO SCH (23:50)
--- NOTE | 2023-01-10 | XR ---
EXAMINATION TYPE: XR chest 1V portable DATE OF EXAM: 01/09/2023 HISTORY: Shortness of breath. COMPARISON: 01/08/2023 TECHNIQUE: Single view of the chest is submitted. FINDINGS: Demonstrated are scattered senescent parenchymal change. There is no evidence for focal infiltrate. Cardiomegaly with pulmonary venous congestion. Small left-sided pleural effusion noted. Mild intersti tial edema difficult to exclude. Hilar and mediastinal structures are within normal limits. Degenerative changes are seen of the dorsal spine. IMPRESSION: 1. Cardiomegaly with pulmonary venous congestion. Small left-sided pleural effusion noted. Mild inte rstitial edema difficult to exclude.
[2023-01-10] MEDS ORDERED: DEXTROSE 50% SYRINGE 50 ML IVP PRN ×2 (00:08)
[2023-01-10 00:15] LABS: Anisocytosis Slight; Basophils % (A) 0 %; Eosinophils % (A) 0 %; HCT 27.5 % (34.0-46.0); Hypochromasia Moderate; Lymphocytes # (A) 0.5 k/uL (1.0-4.8); Lymphocytes % (A) 5 %; MCH 29.8 pg (25.0-35.0); MCHC 31.7 g/dL (31.0-37.0); Mean Platelet Volume 8.8; Monocytes # (A) 0.7 k/uL (0-1.0); Monocytes % (A) 6 %; Neutrophils # (A) 8.9 k/uL (1.3-7.7); Neutrophils % (A) 87 %; Platelet Count 141 k/uL (150-450); RBC 2.92 m/uL (3.80-5.40); RDW 18.3 % (11.5-15.5); WBC 10.2 k/uL (3.8-10.6)
[2023-01-10 00:32] LABS: HGB 8.7 gm/dL (11.4-16.0)
[2023-01-10] MEDS: SODIUM CHLORIDE 0.9% 1,000 ML IV SCH ×2 (01:31→08:21)
--- NOTE | 2023-01-10 01:51 | CT ---
EXAM: CT Angiography Chest With Intravenous Contrast CLINICAL HISTORY: ITS.REASON CT Reason: rule out pulmonary embolism TECHNIQUE: Axial computed tomographic angiography images of the chest with intravenous contrast. CTDI is 19.27 mGy and DLP is 481.6 mGy-cm. This CT exam was performed using one or more of the following dose reduction techniques: automated exposure control, adjustment of the mA and/or kV according to patient size, and/or use of iterative reconstruction technique. MIP reconstructed images were created and reviewed. COMPARISON: CXR 01/09/23 FINDINGS: Artifacts: Motion. Pulmonary arteries: No central pulmonary embolus. Aorta: Aortic atherosclerosis. No thoracic aortic aneurysm or dissection. Lungs: Bilateral emphysema, mild dependent atelectasis, and pleural- parenchymal scar. No suspicious pulmonary nodule. Pleural space: Small bilateral pleural effusions. Heart: Coronary artery calcification. Trace pericardial effusion. Bones/joints: No acute abnormality. Soft tissues: No significant abnormality. Lymph nodes: No significant abnormality. Kidneys and ureters: Hypoattenuating left renal lesion, likely a cyst. IMPRESSION: 1. No central pulmonary embolus. 2. Small bilateral pleural effusions.
[2023-01-10] MEDS: methylPREDNISolone SOD SUCCI 125 MG/2 ML VIAL IV SCH ×3 (02:08→11:08)
[2023-01-10] MEDS: ACETAMINOPHEN TAB 325 MG TAB PO PRN ×2 (03:35→09:25)
[2023-01-10] MEDS: NEBIVOLOL 5 MG TAB PO SCH ×2 (04:26→21:25)
[2023-01-10 05:18] LABS: African American GFR (CKD) >90 (>60 ml/min/1.73 sqM); Anion Gap 10 mmol/L; Blood Urea Nitrogen 14 mg/dL (7-17); Calcium 8.6 mg/dL (8.4-10.2); Carbon Dioxide 17 mmol/L (22-30); Chloride 108 mmol/L (98-107); Glucose 160 mg/dL (74-99); Non-African American GFR(CKD) 86 (>60 ml/min/1.73 sqM); Potassium 3.8 mmol/L (3.5-5.1); Sodium 135 mmol/L (137-145)
[2023-01-10 05:23] LABS: Anisocytosis Slight; HCT 27.9 % (34.0-46.0); Hypochromasia Moderate; MCH 30.5 pg (25.0-35.0); MCHC 32.2 g/dL (31.0-37.0); MCV 94.6 fL (80.0-100.0); Mean Platelet Volume 9.2; Platelet Count 119 k/uL (150-450); RBC 2.95 m/uL (3.80-5.40); RDW 18.3 % (11.5-15.5); WBC 7.2 k/uL (3.8-10.6)
[2023-01-10] MEDS ORDERED: Potassium Replacement Protocol 1 EACH MISC MISCELLANE PRN (06:50)
[2023-01-10 06:58] LABS: Glucose,Whole Blood 200 mg/dL (70-110)
[2023-01-10] MEDS ORDERED: POTASSIUM CHLORIDE ER 20 MEQ TAB.ER PO SCH (07:00)
[2023-01-10] MEDS: INSULIN ASPART (NovoLOG) 100 UNIT/ML VIAL SQ SCH ×4 (07:13→21:25)
[2023-01-10] MEDS: DEXMEDETOMIDINE/0.9% NACL(PMX) 400 MCG in EMPTY BAG 1 BAG IV SCH (07:15)
[2023-01-10] MEDS: SERTRALINE 100 MG TAB PO SCH (08:21)
[2023-01-10] MEDS: LEVOTHYROXINE 25 MCG TAB PO SCH (08:21)
[2023-01-10] MEDS: FAMOTIDINE 20 MG TAB PO SCH (08:21)
--- NOTE | 2023-01-10 08:28 | P.PN ---
Subjective Progress Note Date: 01/10/23 Principal diagnosis: Fall with trauma Right IT fracture Multiple comorbidities Patient seen and examined this morning. Patient is resting complaint bed. Patient does have slight confusion due to anesthesia. Patient is much more alert this morning. Spouse's at bedside. Patient reports that her pain is managed on current regimen, she states her pain in right hip has improvement since procedure. Surgical incision to the right hip, surgical dressing is clean dry and intact with small shadowing noted. Informed patient that she will be working with physical therapy today. Patient and spouse are anticipating patient to go home at discharge with home care. When medically stable she is appropriate to downgrade to [facility] floor. Patient has been afebrile, denies nausea/vomiting, or chest pain. Objective - Vital Signs Vital signs: Vital Signs Temp 97.2 F L 01/10/23 04:00 Pulse 82 01/10/23 07:30 Resp 15 01/10/23 07:30 BP 160/82 01/10/23 07:30 Pulse Ox 91 L 01/10/23 07:30 FiO2 40 01/09/23 22:45 Intake & Output 01/09/23 01/10/23 01/10/23 18:59 06:59 18:59 Intake Total 300 981.906 107.443 Output Total 1000 1560 100 Balance -700 -578.094 7.443 Weight 75.1 kg Intake: IV 300 950 75 Lactated Ringers 1,000ml 600 75 @ 75ml/hr Intake, IV Titration 31.906 32.443 Amount Dexmedetomidine/0.9% NaCl 31.906 32.443 (Pmx) 400 mcg In Empty Bag 1 bag @ 0.2 MCG/KG/HR 3.379 mls/hr IV .Q24H [facility] Rx#:[id number] Output: Urine 1000 1450 100 Estimated Blood Loss 110 Other: Voiding Method Indwelling Catheter Indwelling Catheter - Exam Inspection: Surgical incision to the right hip, dressing is clean dry and intact. Small amount of shadowing noted. Sensation: Sensation is equal, symmetric, bilaterally intact throughout the upper and lower extremities Palpation: Nontender to palpation throughout bilateral upper and left lower extremities and throughout spine exam. TTP over the right hip region. Range of motion: Patient does have full range of motion bilateral upper and left lower extremities on exam. Limited ROM to the right lower extremity due to pain. Motor: 5/5 in all major motor groups in the bilateral upper and left lower extremities, 4/5 right lower extremity Special tests: Negative Homans bilaterally. Negative Moris bilaterally. Negative clonus bilaterally. Neurovascular: Radial pulse intact, 2+ bilaterally. Cap refill under 3 seconds in digits upper extremities. - Labs CBC & Chem 7: 01/10/23 04:15 01/10/23 04:15 Labs: Abnormal Lab Results - Last 24 Hours (Table) 01/08/23 01/09/23 01/09/23 Range/Units 21:45 05:59 05:59 RBC 3.42 L (4.10-5.20) X 10*6/uL Hgb 9.5 L (12.0-15.0) d/dL Hct 31.8 L (37.2-46.3) % MCHC 29.9 L (32.0-37.0) d/dL RDW 18.4 H (11.5-14.5) % Plt Count (150-450) k/uL Neutrophils # (1.3-7.7) k/uL Lymphocytes # 0.61 L (0.90-5.00) X 10*3/uL Monocytes # 0.19 L (0.20-1.00) X 10*3/uL Eosinophils # 0 L (0.04-0.35) X 10*3/uL ABG pCO2 (35-45) mmHg ABG HCO3 (21-25) mmol/L ABG O2 Saturation (94-97) % Sodium (137-145) mmol/L Chloride (98-107) mmol/L Carbon Dioxide 20.1 L (21.6-31.8) mmol/L Anion Gap 13.90 H (4.00-12.00) mmol/L Glucose 201 H (70-110) mg/dL POC Glucose (mg/dL) (70-110) mg/dL Calcium 8.6 L (8.7-10.3) mg/dL Blood Bank Comment Sent to [facility] A Reference Lab Result See BBK REF Reports A 01/09/23 01/09/23 01/09/23 Range/Units 21:58 22:35 23:30 RBC 2.92 L (4.10-5.20) X 10*6/uL Hgb 8.7 L D (12.0-15.0) d/dL Hct 27.5 L (37.2-46.3) % MCHC (32.0-37.0) d/dL RDW 18.3 H (11.5-14.5) % Plt Count 141 L (150-450) k/uL Neutrophils # 8.9 H (1.3-7.7) k/uL Lymphocytes # 0.5 L (0.90-5.00) X 10*3/uL Monocytes # (0.20-1.00) X 10*3/uL Eosinophils # (0.04-0.35) X 10*3/uL ABG pCO2 34 L (35-45) mmHg ABG HCO3 19 L (21-25) mmol/L ABG O2 Saturation 98.3 H (94-97) % Sodium (137-145) mmol/L Chloride (98-107) mmol/L Carbon Dioxide (21.6-31.8) mmol/L Anion Gap (4.00-12.00) mmol/L Glucose (70-110) mg/dL POC Glucose (mg/dL) 215 H (70-110) mg/dL Calcium (8.7-10.3) mg/dL Blood Bank Comment Reference Lab Result 01/10/23 01/10/23 01/10/23 Range/Units 04:15 04:15 06:56 RBC 2.95 L (4.10-5.20) X 10*6/uL Hgb 9.0 L (12.0-15.0) d/dL Hct 27.9 L (37.2-46.3) % MCHC (32.0-37.0) d/dL RDW 18.3 H (11.5-14.5) % Plt Count 119 L (150-450) k/uL Neutrophils # (1.3-7.7) k/uL Lymphocytes # (0.90-5.00) X 10*3/uL Monocytes # (0.20-1.00) X 10*3/uL Eosinophils # (0.04-0.35) X 10*3/uL ABG pCO2 (35-45) mmHg ABG HCO3 (21-25) mmol/L ABG O2 Saturation (94-97) % Sodium 135 L (137-145) mmol/L Chloride 108 H (98-107) mmol/L Carbon Dioxide 17 L (21.6-31.8) mmol/L Anion Gap (4.00-12.00) mmol/L Glucose 160 H (70-110) mg/dL POC Glucose (mg/dL) 200 H (70-110) mg/dL Calcium (8.7-10.3) mg/dL Blood Bank Comment Reference Lab Result Assessment and Plan Assessment: Postop day 1: Right hip IM nail Fall with trauma Right IT fracture Multiple comorbidities Plan: -Appreciate travel sales consultant and team management. -Activity: Ambulate QID, OOB all meals, up and about, limit lifting bending twisting to less than 5 lbs. Use walker or cane if needed for stability. -Daily PT/OT, increase ambulation strength and balance. -Pain control: Adequate at this time -Meds: reviewed -GI ppx: senna, Miralax -DC hughes when up and about, bedside commode if needed -DVT PPX: OK to restart Heparin tonight -Hygiene: Shower today. Maintain dressing clean and dry. -Encourage IS 10x/hr -Dispo: pending clinical course *I reviewed and discussed this case with my attending Dr. Hidalgo, whom has reviewed this chart and films and is in agreement with assessment and plan of care as outlined above. I have personally seen and examined the patient, performed the documentation and the assessment and plan as written. Number of minutes spent on the visit: 10m.
[2023-01-10] MEDS ORDERED: FUROSEMIDE 10 MG/ML 4 ML VIAL IV STA ×2 (08:34→23:17)
[2023-01-10] MEDS: SYMBICORT 160-4.5 MCG INHALER INHALATION SCH ×2 (09:45→19:51)
[2023-01-10] MEDS: IPRATROPIUM-ALBUTEROL 3 ML NEB INHALATION SCH ×4 (09:46→19:51)
[2023-01-10] MEDS: ENOXAPARIN 40 MG/0.4 ML SYRINGE SQ SCH (11:06)
[2023-01-10] MEDS: HYDROmorphone 0.5 MG/0.5 ML SYRINGE IVP PRN ×2 (11:07→21:28)
[2023-01-10 11:22] LABS: Glucose,Whole Blood 231 mg/dL (70-110)
--- NOTE | 2023-01-10 12:11 | P.PN ---
Subjective Progress Note Date: 01/10/23 Principal diagnosis: Right peritrochanteric IT fracture, status post right hip IMN fixation. Postoperative day #1 I am seeing this patient in new consultation today 01/09/2023 after the patient was transferred from an outside facility in [facility]. Patient is a 77-year-old female with past medical history significant for COPD, asthma, coronary artery disease, prior heart catheterizations with 2 cardiac stents, hypertension, hyperlipidemia, peripheral arterial disease with 3 right leg stents, chronic anemia requiring iron infusions, DVT, and is a remote ex-smoker. Patient is a current resident of [place]. She does reportedly follow with a riveter hand for management of her asthma and COPD. She states that she uses Trelegy inhaler and when necessary albuterol nebulizations on an outpatient basis. Patient was transferred from [facility] in [facility] yesterday afternoon. She reportedly tripped over a dog bowl while at her daughter's house on Monday. She was then taken to the hospital, and was found to have a right hip fracture. CT of the pelvis without contrast at outside facility showed a minimally displaced comminuted right femoral intra- trochanteric fracture with comminution seen more extensive in the vicinity of t he greater trochanter. Peripheral pulses are intact and there are no signs of compartment syndrome. She is scheduled for surgery with Dr. Hidalgo tomorrow. We were consulted for management of the patient's COPD. She is wheezy on auscultation. She denies any shortness of breath, fevers/chills, change in her chronic cough, sputum production, chest pain, hemoptysis. Denies sick contacts. She also denies any chest pain, heart palpitations, lightheadedness, syncope, lower extremity swelling, orthopnea. Patient is currently sitting up in bed, on 3 L nasal cannula, in no acute distress. She is oxygenating at 90%. Chest x- ray on arrival showed some chronic upper lobe reticulonodular changes without any focal consolidation or evidence of pneumonia. CBC on arrival showed a WBC count of 7.2, hemoglobin 10.4, hematocrit 32.1, platelets 155. BMP was unremarkable. Normal saline is currently infusing at 75 mL per hour. Patient is anticoagulated on Xarelto on an outpatient basis, and clinical suspicion for pulmonary embolism is low. ECG on arrival shows no obvious acute ischemic coker es. Patient appears stable and admitted to the general medical floor. Patient was reevaluated today on 01/10/2023, patient required transfer to the ICU yesterday after her surgery, mostly because her O2 saturation Fluctuating up and down, patient was extremely restless and agitated, hence I recommended transferred to the ICU and place the patient on Precedex. Overnight the patient did fairly well on Precedex, remains on 0.4 mcg/kg/h, her IV fluid is 0.9 at 75 mL/h I cut it down to KVO chest x-ray showed mostly bilateral pleural effusion and possibly some fluid overload and the patient will be getting Lasix 40 mg IV push 1. Last night she was on BiPAP 06/21/40% now she is on 4 L nasal carrier. Her mentation seems to be better today remains slow but significant improvement in her mentation compared to yesterday after the surgery. WBC count is 7.2 hemoglobin is 9 electrolytes are normal, renal profile is normal patient had a CT angiogram of the chest last night, negative for thromboembolic disease Objective - Vital Signs Vital signs: Vital Signs Temp 98 F 01/10/23 08:00 Pulse 95 01/10/23 11:57 Resp 20 01/10/23 11:57 BP 149/55 01/10/23 11:00 Pulse Ox 93 L 01/10/23 11:00 FiO2 40 01/09/23 22:45 Intake & Output 01/09/23 01/10/23 01/10/23 18:59 06:59 18:59 Intake Total 300 981.906 435.874 Output Total 1000 1560 1550 Balance -700 -578.094 -1114.126 Weight 75.1 kg Intake: IV 300 950 75 Lactated Ringers 1,000ml 600 75 @ 75ml/hr Intake, IV Titration 31.906 240.874 Amount Dexmedetomidine/0.9% NaCl 31.906 55.874 (Pmx) 400 mcg In Empty Bag 1 bag @ 0.2 MCG/KG/HR 3.379 mls/hr IV .Q24H [facility] Rx#:[id number] Sodium Chloride 0.9% 1, 135 000 ml @ 20 mls/hr IV . Q24H [facility] Rx#:[id number] ceFAZolin 2 gm In Sodium 50 Chloride 0.9% 50 ml @ 100 mls/hr IVPB Q8HR [facility] Rx# :[id number] Oral 120 Output: Urine 1000 1450 1550 Estimated Blood Loss 110 Other: Voiding Method Indwelling Catheter Indwelling Catheter Indwelling Catheter - Exam Physical Exam: Revealed a 77-year-old female in no distress on 4 L nasal cannula Head: Atraumatic, normocephalic. HEENT:[Neck is supple.] [No neck masses.] [No thyromegaly.] [No JVD.] Chest: [Minimal crackles, and scattered rhonchi noted bilaterally.] Cardiac Exam: [Normal S1 and S2, no S3 gallop, no murmur.] Abdomen: [Soft, nontender, no megaly, no rebound, no guarding, normal bowel sounds.] Extremities: [No clubbing, no edema, no cyanosis.] Neurological Exam: Minimal confusion is noted, patient is slow, but seems to be oriented to place, time and person. Psychiatric: Normal mood, affect, minimal confusion as far as her mental status. And she seems to be a bit slow. - Labs CBC & Chem 7: 01/10/23 04:15 01/10/23 04:15 Labs: Abnormal Lab Results - Last 24 Hours (Table) 01/08/23 01/09/23 01/09/23 Range/Units 21:45 21:58 22:35 RBC (3.80-5.40) m/uL Hgb (11.4-16.0) gm/dL Hct (34.0-46.0) % RDW (11.5-15.5) % Plt Count (150-450) k/uL Neutrophils # (1.3-7.7) k/uL Lymphocytes # (1.0-4.8) k/uL ABG pCO2 34 L (35-45) mmHg ABG HCO3 19 L (21-25) mmol/L ABG O2 Saturation 98.3 H (94-97) % Sodium (137-145) mmol/L Chloride (98-107) mmol/L Carbon Dioxide (22-30) mmol/L Glucose (74-99) mg/dL POC Glucose (mg/dL) 215 H (70-110) mg/dL Blood Bank Comment Sent to [facility] A Reference Lab Result See BBK REF Reports A 06/01/10/23 01/10/23 Range/Units 23:30 04:15 04:15 RBC 2.92 L 2.95 L (3.80-5.40) m/uL Hgb 8.7 L D 9.0 L (11.4-16.0) gm/dL Hct 27.5 L 27.9 L (34.0-46.0) % RDW 18.3 H 18.3 H (11.5-15.5) % Plt Count 141 L 119 L (150-450) k/uL Neutrophils # 8.9 H (1.3-7.7) k/uL Lymphocytes # 0.5 L (1.0-4.8) k/uL ABG pCO2 (35-45) mmHg ABG HCO3 (21-25) mmol/L ABG O2 Saturation (94-97) % Sodium 135 L (137-145) mmol/L Chloride 108 H (98-107) mmol/L Carbon Dioxide 17 L (22-30) mmol/L Glucose 160 H (74-99) mg/dL POC Glucose (mg/dL) (70-110) mg/dL Blood Bank Comment Reference Lab Result 01/10/23 01/10/23 Range/Units 06:56 11:21 RBC (3.80-5.40) m/uL Hgb (11.4-16.0) gm/dL Hct (34.0-46.0) % RDW (11.5-15.5) % Plt Count (150-450) k/uL Neutrophils # (1.3-7.7) k/uL Lymphocytes # (1.0-4.8) k/uL ABG pCO2 (35-45) mmHg ABG HCO3 (21-25) mmol/L ABG O2 Saturation (94-97) % Sodium (137-145) mmol/L Chloride (98-107) mmol/L Carbon Dioxide (22-30) mmol/L Glucose (74-99) mg/dL POC Glucose (mg/dL) 200 H 231 H (70-110) mg/dL Blood Bank Comment Reference Lab Result Assessment and Plan Assessment: Impression: Right femoral intertrochanteric fracture , status post Right hip IMN fixation , postoperative day #1. Acute hypoxemic respiratory failure, multifactorial suspect a combination of acute diastolic congestive heart failure/pulmonary edema with bilateral pleural effusions and suspect underlying COPD with acute COPD exacerbation Coronary artery disease, with 2 prior cardiac stents History of peripheral arterial disease, with prior revascularization and 3 stents to the right leg Essential hypertension Hyperlipidemia Chronic iron deficiency anemia requiring iron infusions History of DVT, anticoagulated on Xarelto on an outpatient basis Hypothyroidism Ex-smoker, remote history Acute metabolic encephalopathy with confusion, improving. Recommendation: Continue Precedex and titrate accordingly until discontinued. Continue to monitor in the ICU Continue bronchodilators Continue diuretics Cut down on steroids dose as may contribute to her mental status change. Patient will be transitioned to 40 mg IV push every 8 hours Resume patient's cardiac medications. Continue GI and DVT prophylaxis We'll continue to follow. Time with Patient: Less than 30
[2023-01-10] MEDS: FERROUS SULFATE 325 MG TAB PO SCH (12:33)
[2023-01-10] MEDS: RIVAROXABAN 2.5 MG TABLET PO SCH ×2 (12:33→21:26)
[2023-01-10] MEDS: CLOPIDOGREL 75 MG TAB PO SCH (12:33)
--- NOTE | 2023-01-10 12:50 | PN ---
PROGRESS NOTE SUBJECTIVE: Karely is a 77-year-old lady, who is admitted to hospital with hip fracture and underwent surgery. While on the surgical floor, became confused and combative and had to be transferred to ICU for the same. This morning, she is feeling much better. Remains alert, awake and free of symptoms. OBJECTIVE: GENERAL: Comfortable at rest. VITAL SIGNS: Stable. CHEST: Reveals good air entry bilaterally. HEART: Reveals first and second heart sounds. No gallop. EXTREMITIES: Did not reveal any edema. Peripheral pulses are felt. The patient is currently on Crestor, Plavix, Synthroid, and Xarelto. She is on Xarelto and Plavix because of peripheral arterial disease and revascularization in the past. An echo on this admission revealed normal LV function. Labs show a hemoglobin of 9, potassium is 3.8 creatinine 0.64. ASSESSMENT: 1. Acute hip fracture. 2. Peripheral arterial disease. 3. Confusional state. PLAN: We will resume Plavix and Xarelto as soon as surgeon okays it. MMODL / IJN: [id number] /
--- NOTE | 2023-01-10 15:40 | P.PN ---
Subjective Progress Note Date: 01/10/23 Patient is much better today, has no complaints of difficulty breathing. Pain is well controlled. 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 In the ED, she was requiring 4 L nasal cannula to maintain O2 saturation in the low 90s. Chest x-ray showed chronic reticulonodular changes with no acute process. CT brain showed chronic small vessel ischemic changes without acute intracranial process. CBC shows hemoglobin of 10.4 with MCV of 91.3. Coagulation panel within normal limits. BMP shows chloride 109 and glucose 105. Patient is admitted under orthopedic surgery with [facility] on consultation. EKG shows NSR with ventricular rate of 71. Echocardiogram shows EF 60% with mild concentric LVH, LA enlargement, mild MR, mild pulmonary HTN. 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, hypertension, dyslipidemia, depression, hypothyroidism Plan: Today, patient is afebrile, 142/51, heart rate 86, 96% on 4 L nasal cannula CBC redemonstrates anemia down to 9, stable, thrombus cytopenia to 119, down fro m 141 Basic metabolic panel shows hyponatremia to 135, elevated chloride of 108, low bicarb of 17 Resume patient's Xarelto and Plavix for history of PAD Continue duo nebs Continue Symbicort Continue Solu-Medrol Patient is full code Objective - Vital Signs Vital signs: Vital Signs Temp 98.1 F 01/10/23 12:00 Pulse 91 01/10/23 14:00 Resp 19 01/10/23 14:00 BP 136/44 01/10/23 14:00 Pulse Ox 93 L 01/10/23 14:00 FiO2 40 01/09/23 22:45 Intake & Output 01/09/23 01/10/23 01/10/23 18:59 06:59 18:59 Intake Total 300 981.906 606.350 Output Total 1000 1560 2050 Balance -700 -578.094 -1443.650 Weight 75.1 kg Intake: IV 300 950 75 Lactated Ringers 1,000ml 600 75 @ 75ml/hr Intake, IV Titration 31.906 291.350 Amount Dexmedetomidine/0.9% NaCl 31.906 66.350 (Pmx) 400 mcg In Empty Bag 1 bag @ 0.2 MCG/KG/HR 3.379 mls/hr IV .Q24H [facility] Rx#:[id number] Sodium Chloride 0.9% 1, 175 000 ml @ 20 mls/hr IV . Q24H [facility] Rx#:[id number] ceFAZolin 2 gm In Sodium 50 Chloride 0.9% 50 ml @ 100 mls/hr IVPB Q8HR [facility] Rx# :[id number] Oral 240 Output: Urine 1000 1450 2050 Estimated Blood Loss 110 Other: Voiding Method Indwelling Catheter Indwelling Catheter Indwelling Catheter - Labs CBC & Chem 7: 01/10/23 04:15 01/10/23 04:15 Labs: Abnormal Lab Results - Last 24 Hours (Table) 01/08/23 01/09/23 01/09/23 Range/Units 21:45 21:58 22:35 RBC (3.80-5.40) m/uL Hgb (11.4-16.0) gm/dL Hct (34.0-46.0) % RDW (11.5-15.5) % Plt Count (150-450) k/uL Neutrophils # (1.3-7.7) k/uL Lymphocytes # (1.0-4.8) k/uL ABG pCO2 34 L (35-45) mmHg ABG HCO3 19 L (21-25) mmol/L ABG O2 Saturation 98.3 H (94-97) % Sodium (137-145) mmol/L Chloride (98-107) mmol/L Carbon Dioxide (22-30) mmol/L Glucose (74-99) mg/dL POC Glucose (mg/dL) 215 H (70-110) mg/dL Blood Bank [facility] Result See BBK REF Reports A 01/09/23 01/10/23 01/10/23 Range/Units 23:30 04:15 04:15 RBC 2.92 L 2.95 L (3.80-5.40) m/uL Hgb 8.7 L D 9.0 L (11.4-16.0) gm/dL Hct 27.5 L 27.9 L (34.0-46.0) % RDW 18.3 H 18.3 H (11.5-15.5) % Plt Count 141 L 119 L (150-450) k/uL Neutrophils # 8.9 H (1.3-7.7) k/uL Lymphocytes # 0.5 L (1.0-4.8) k/uL ABG pCO2 (35-45) mmHg ABG HCO3 (21-25) mmol/L ABG O2 Saturation (94-97) % Sodium 135 L (137-145) mmol/L Chloride 108 H (98-107) mmol/L Carbon Dioxide 17 L (22-30) mmol/L Glucose 160 H (74-99) mg/dL POC Glucose (mg/dL) (70-110) mg/dL Blood Bank Comment Reference Lab Result 01/10/23 01/10/23 Range/Units 06:56 11:21 RBC (3.80-5.40) m/uL Hgb (11.4-16.0) gm/dL Hct (34.0-46.0) % RDW (11.5-15.5) % Plt Count (150-450) k/uL Neutrophils # (1.3-7.7) k/uL Lymphocytes # (1.0-4.8) k/uL ABG pCO2 (35-45) mmHg ABG HCO3 (21-25) mmol/L ABG O2 Saturation (94-97) % Sodium (137-145) mmol/L Chloride (98-107) mmol/L Carbon Dioxide (22-30) mmol/L Glucose (74-99) mg/dL POC Glucose (mg/dL) 200 H 231 H (70-110) mg/dL Blood Bank Comment Reference Lab Result
[2023-01-10 16:09] LABS: Glucose,Whole Blood 199 mg/dL (70-110)
[2023-01-10] MEDS: methylPREDNISolone SOD SUCCI 40 MG/ML 1 ML VIAL IV SCH ×2 (16:40→23:48)
[2023-01-10 21:18] LABS: Glucose,Whole Blood 176 mg/dL (70-110)
[2023-01-10] MEDS: ATORVASTATIN 80 MG TAB PO SCH (21:24)
[2023-01-10] MEDS: SENNOSIDES-DOCUSATE SODIUM 1 EACH TAB PO SCH (21:25)
[2023-01-11 00:30] LABS: Potassium 3.6 mmol/L (3.5-5.1)
[2023-01-11] MEDS ORDERED: Potassium Replacement Protocol 1 EACH MISC MISCELLANE PRN (00:44)
[2023-01-11] MEDS ORDERED: POTASSIUM CHLORIDE ER 20 MEQ TAB.ER PO SCH (01:00)
[2023-01-11] MEDS ORDERED: LORazepam 1 MG TAB PO PRN (02:36)
[2023-01-11 04:36] LABS: African American GFR (CKD) 71 (>60 ml/min/1.73 sqM); Anion Gap 10 mmol/L; Blood Urea Nitrogen 22 mg/dL (7-17); Calcium 8.8 mg/dL (8.4-10.2); Carbon Dioxide 24 mmol/L (22-30); Chloride 104 mmol/L (98-107); Glucose 176 mg/dL (74-99); Non-African American GFR(CKD) 62 (>60 ml/min/1.73 sqM); Potassium 3.7 mmol/L (3.5-5.1); Sodium 138 mmol/L (137-145)
[2023-01-11] MEDS ORDERED: DILTIAZEM DRIP BOLUS FROM BAG 1 MG SOLN IV ONE (05:16)
[2023-01-11] MEDS: DILTIAZEM 125 MG in SODIUM CHLORIDE 0.9% 100 ML IV SCH (06:02)
[2023-01-11 06:31] LABS: Glucose,Whole Blood 209 mg/dL (70-110)
[2023-01-11] MEDS: INSULIN ASPART (NovoLOG) 100 UNIT/ML VIAL SQ SCH ×4 (07:16→20:04)
[2023-01-11] MEDS: HYDROmorphone 0.5 MG/0.5 ML SYRINGE IVP PRN (07:43)
[2023-01-11] MEDS: methylPREDNISolone SOD SUCCI 40 MG/ML 1 ML VIAL IV SCH (07:44)
[2023-01-11] MEDS: RIVAROXABAN 2.5 MG TABLET PO SCH ×2 (07:59→20:47)
[2023-01-11] MEDS: FAMOTIDINE 20 MG TAB PO SCH (07:59)
[2023-01-11] MEDS: LEVOTHYROXINE 25 MCG TAB PO SCH (07:59)
[2023-01-11] MEDS: SERTRALINE 100 MG TAB PO SCH (08:00)
[2023-01-11] MEDS: CLOPIDOGREL 75 MG TAB PO SCH (08:00)
[2023-01-11] MEDS: IPRATROPIUM-ALBUTEROL 3 ML NEB INHALATION SCH ×4 (08:08→21:19)
[2023-01-11] MEDS: SYMBICORT 160-4.5 MCG INHALER INHALATION SCH ×2 (08:08→21:19)
--- NOTE | 2023-01-11 08:37 | P.PN ---
Subjective Progress Note Date: 01/11/23 Principal diagnosis: Fall with trauma Right IT fracture Multiple comorbidities Patient seen and examined this morning. Patient is resting in bed, she is slightly anxious and restless. pharmacist intern RN reports that patient has been running in and out of SV[facility]. She is currently on Precedex and Cardizem drip at this time. Patient reports that her pain is managed on current regimen, she states her pain in right hip has improvement since procedure. Surgical incision to the right hip, surgical dressing is clean dry and intact. Patient has been afebrile, denies nausea/vomiting, or chest pain. Objective - Vital Signs Vital signs: Vital Signs Temp 98.5 F 01/11/23 08:00 Pulse 90 01/11/23 08:00 Resp 11 L 01/11/23 08:00 BP 154/69 01/11/23 08:00 Pulse Ox 90 L 01/11/23 08:00 FiO2 40 01/09/23 22:45 Intake & Output 01/10/23 01/11/23 01/11/23 18:59 06:59 18:59 Intake Total 946.350 811.257 80.038 Output Total 2425 2100 65 Balance -1478.650 -1288.743 15.038 Weight 72.3 kg Intake: IV 75 220 20 Lactated Ringers 1,000ml 75 @ 75ml/hr Sodium Chloride 0.9% 1, 220 20 000 ml @ 20 mls/hr IV . Q24H [facility] Rx#:[id number] Intake, IV Titration 391.350 51.257 60.038 Amount Dexmedetomidine/0.9% NaCl 66.350 31.257 15.038 (Pmx) 400 mcg In Empty Bag 1 bag @ 0.2 MCG/KG/HR 3.379 mls/hr IV .Q24H [facility] Rx#:[id number] Diltiazem 125 mg In 5 Sodium Chloride 0.9% 100 ml @ 5 MG/HR 5 mls/hr IV .Q24H [facility] Rx#:[id number] Sodium Chloride 0.9% 1, 275 20 40 000 ml @ 20 mls/hr IV . Q24H [facility] Rx#:[id number] ceFAZolin 2 gm In Sodium 50 Chloride 0.9% 50 ml @ 100 mls/hr IVPB Q8HR [facility] Rx# :[id number] Oral 480 540 0 Output: Urine 2425 2100 65 Other: Voiding Method Indwelling Catheter Indwelling Catheter Indwelling Catheter - Exam Inspection: Surgical incision to the right hip, dressing is clean dry and intact. Sensation: Sensation is equal, symmetric, bilaterally intact throughout the upper and lower extremities Palpation: Nontender to palpation throughout bilateral upper and left lower extremities and throughout spine exam. TTP over the right hip region. Range of motion: Patient does have full range of motion bilateral upper and left lower extremities on exam. Limited ROM to the right lower extremity due to pain. Motor: 5/5 in all major motor groups in the bilateral upper and left lower extremities, 4/5 right lower extremity Special tests: Negative Homans bilaterally. Negative Moris bilaterally. Negative clonus bilaterally. Neurovascular: Radial pulse intact, 2+ bilaterally. Cap refill under 3 seconds in digits upper extremities. - Labs CBC & Chem 7: 01/10/23 04:15 01/11/23 03:46 Labs: Abnormal Lab Results - Last 24 Hours (Table) 01/10/23 01/10/23 01/10/23 Range/Units 11:21 16:08 21:17 BUN (7-17) mg/dL Glucose (74-99) mg/dL POC Glucose (mg/dL) 231 H 199 H 176 H (70-110) mg/dL 01/11/23 01/11/23 Range/Units 03:46 06:30 BUN 22 H (7-17) mg/dL Glucose 176 H (74-99) mg/dL POC Glucose (mg/dL) 209 H (70-110) mg/dL Assessment and Plan Assessment: Postop day 2: Right hip IM nail Fall with trauma Right IT fracture Multiple comorbidities Plan: -Appreciate sourcing consultant and team management. -Activity: Ambulate QID, OOB all meals, up and about, limit lifting bending twisting to less than 5 lbs. Use walker or cane if needed for stability. -Daily PT/OT, increase ambulation strength and balance. -Pain control: Adequate at this time -Meds: reviewed -GI ppx: senna, Miralax -Maintain hughes at this time. -DVT PPX: Plavix -Hygiene: Shower today. Maintain dressing clean and dry. -Encourage IS 10x/hr -Dispo: pending clinical course *I reviewed and discussed this case with my attending Dr. Hidalgo, whom has reviewed this chart and films and is in agreement with assessment and plan of care as outlined above. I have personally seen and examined the patient, performed the documentation and the assessment and plan as written. Number of minutes spent on the visit: 10m.
--- NOTE | 2023-01-11 09:29 | PN ---
PROGRESS NOTE SUBJECTIVE: Maryjo is a 77-year-old lady who was admitted to hospital following a hip fracture. Has history of peripheral arterial disease and has had revascularization for the same. We resumed the Plavix and Xarelto that she was on. The patient was awake, alert, and conversing yesterday and then she developed further episodes of confusion. She appears somewhat confused and at times combative this morning. OBJECTIVE: VITAL SIGNS: Remains in sinus rhythm, heart rate is 90 beats per minute, blood pressure is 150/69, respiratory rate 18. CHEST: Good air entry bilaterally. HEART: Exam reveals first and second heart sounds and a systolic murmur at the left lower sternal border. ABDOMEN: Soft. EXTREMITIES: Did not reveal any edema. Peripheral pulses are palpable. ASSESSMENT: Hip fracture status post surgery, peripheral arterial disease, confusional state. PLAN: I resumed her Plavix and Xarelto. Continue rest of her medications. MMODL / IJN: [id number] /
[2023-01-11] MEDS ORDERED: POTASSIUM CHLORIDE ER 20 MEQ TAB.ER PO STA (09:40)
[2023-01-11] MEDS: ACETAMINOPHEN TAB 325 MG TAB PO PRN (10:11)
[2023-01-11] MEDS: SODIUM CHLORIDE 0.9% 1,000 ML IV SCH (10:12)
[2023-01-11] MEDS: DEXMEDETOMIDINE/0.9% NACL(PMX) 400 MCG in EMPTY BAG 1 BAG IV SCH ×2 (10:25→19:54)
--- NOTE | 2023-01-11 11:00 | P.PN ---
Subjective Progress Note Date: 01/11/23 Principal diagnosis: Right peritrochanteric IT fracture, status post right hip IMN fixation. Postoperative day #2 I am seeing this patient in new consultation today 01/09/2023 after the patient was transferred from an outside facility in [facility]. Patient is a 77-year-old female with past medical history significant for COPD, asthma, coronary artery disease, prior heart catheterizations with 2 cardiac stents, hypertension, hyperlipidemia, peripheral arterial disease with 3 right leg stents, chronic anemia requiring iron infusions, DVT, and is a remote ex-smoker. Patient is a current resident of [place]. She does reportedly follow with a bead forming machine operator for management of her asthma and COPD. She states that she uses Trelegy inhaler and when necessary albuterol nebulizations on an outpatient basis. Patient was transferred from [facility] in [facility] yesterday afternoon. She reportedly tripped over a dog bowl while at her daughter's house on Monday. She was then taken to the hospital, and was found to have a right hip fracture. CT of the pelvis without contrast at outside facility showed a minimally displaced comminuted right femoral intra- trochanteric fracture with comminution seen more extensive in the vicinity of t he greater trochanter. Peripheral pulses are intact and there are no signs of compartment syndrome. She is scheduled for surgery with Dr. Hidalgo tomorrow. We were consulted for management of the patient's COPD. She is wheezy on auscultation. She denies any shortness of breath, fevers/chills, change in her chronic cough, sputum production, chest pain, hemoptysis. Denies sick contacts. She also denies any chest pain, heart palpitations, lightheadedness, syncope, lower extremity swelling, orthopnea. Patient is currently sitting up in bed, on 3 L nasal cannula, in no acute distress. She is oxygenating at 90%. Chest x- ray on arrival showed some chronic upper lobe reticulonodular changes without any focal consolidation or evidence of pneumonia. CBC on arrival showed a WBC count of 7.2, hemoglobin 10.4, hematocrit 32.1, platelets 155. BMP was unremarkable. Normal saline is currently infusing at 75 mL per hour. Patient is anticoagulated on Xarelto on an outpatient basis, and clinical suspicion for pulmonary embolism is low. ECG on arrival shows no obvious acute ischemic coker es. Patient appears stable and admitted to the general medical floor. Patient was reevaluated today on 01/10/2023, patient required transfer to the ICU yesterday after her surgery, mostly because her O2 saturation Fluctuating up and down, patient was extremely restless and agitated, hence I recommended transferred to the ICU and place the patient on Precedex. Overnight the patient did fairly well on Precedex, remains on 0.4 mcg/kg/h, her IV fluid is 0.9 at 75 mL/h I cut it down to KVO chest x-ray showed mostly bilateral pleural effusion and possibly some fluid overload and the patient will be getting Lasix 40 mg IV push 1. Last night she was on BiPAP 12/6/40% now she is on 4 L nasal carrier. Her mentation seems to be better today remains slow but significant improvement in her mentation compared to yesterday after the surgery. WBC count is 7.2 hemoglobin is 9 electrolytes are normal, renal profile is normal patient had a CT angiogram of the chest last night, negative for thromboembolic disease Reevaluated today on 01/11/2023, patient remains in the ICU, patient is intermittently confused, last night she had an episode of supraventricular tachycardia, cardiology recommended Cardizem which is running now at 5 mg per hour. Patient remains on Precedex for her intermittent confusion and agitation, and she is now on 0.8 mcg/kg/h of Precedex. Intermittently on BiPAP 12/6/40%. Today I discontinued her Solu-Medrol altogether as I believe she may have symptoms of steroids induced psychosis. Labs were reviewed, basically unremarkable. She has a relatively normal basic metabolic profile normal renal profile blood sugars a bit elevated at 209 Objective - Vital Signs Vital signs: Vital Signs Temp 98.5 F 01/11/23 08:00 Pulse 74 01/11/23 10:00 Resp 14 01/11/23 10:00 BP 157/61 01/11/23 10:00 Pulse Ox 86 L 01/11/23 10:00 FiO2 40 01/11/23 09:58 Intake & Output 01/10/23 01/11/23 01/11/23 18:59 06:59 18:59 Intake Total 946.350 811.257 189.836 Output Total 2425 2100 155 Balance -1478.650 -1288.743 34.836 Weight 72.3 kg Intake: IV 75 220 20 Lactated Ringers 1,000ml 75 @ 75ml/hr Sodium Chloride 0.9% 1, 220 20 000 ml @ 20 mls/hr IV . Q24H [facility] Rx#:[id number] Intake, IV Titration 391.350 51.257 169.836 Amount Dexmedetomidine/0.9% NaCl 66.350 31.257 34.836 (Pmx) 400 mcg In Empty Bag 1 bag @ 0.2 MCG/KG/HR 3.379 mls/hr IV .Q24H JOSIE Rx#:[id number] Diltiazem 125 mg In 15 Sodium Chloride 0.9% 100 ml @ 5 MG/HR 5 mls/hr IV .Q24H JOSIE Rx#:[id number] Sodium Chloride 0.9% 1, 275 20 120 000 ml @ 20 mls/hr IV . Q24H JOSIE Rx#:[id number] ceFAZolin 2 gm In Sodium 50 Chloride 0.9% 50 ml @ 100 mls/hr IVPB Q8HR JOSIE Rx# :[id number] Oral 480 540 0 Output: Urine 2425 2100 155 Other: Voiding Method Indwelling Catheter Indwelling Catheter Indwelling Catheter - Exam Physical Exam: Revealed a 77-year-old female in no distress on 4 L nasal cannula Head: Atraumatic, normocephalic. HEENT:[Neck is supple.] [No neck masses.] [No thyromegaly.] [No JVD.] Chest: [Minimal crackles, and scattered rhonchi noted bilaterally.] Cardiac Exam: [Normal S1 and S2, no S3 gallop, no murmur.] Abdomen: [Soft, nontender, no megaly, no rebound, no guarding, normal bowel sounds.] Extremities: [No clubbing, no edema, no cyanosis.] Neurological Exam: Oriented to place, oriented to person, but not to time. Slightly confused. Psychiatric: Normal mood, affect, minimal confusion as far as her mental status. - Labs CBC & Chem 7: 01/10/23 04:15 01/11/23 03:46 Labs: Abnormal Lab Results - Last 24 Hours (Table) 01/10/23 01/10/23 01/10/23 Range/Units 11:21 16:08 21:17 BUN (7-17) mg/dL Glucose (74-99) mg/dL POC Glucose (mg/dL) 231 H 199 H 176 H (70-110) mg/dL 01/11/23 01/11/23 Range/Units 03:46 06:30 BUN 22 H (7-17) mg/dL Glucose 176 H (74-99) mg/dL POC Glucose (mg/dL) 209 H (70-110) mg/dL Assessment and Plan Assessment: Impression: Right femoral intertrochanteric fracture , status post Right hip IMN fixation , postoperative day #2 Acute hypoxemic respiratory failure, multifactorial suspect a combination of acute diastolic congestive heart failure/pulmonary edema with bilateral pleural effusions and suspect underlying COPD with acute COPD exacerbation Coronary artery disease, with 2 prior cardiac stents History of peripheral arterial disease, with prior revascularization and 3 stents to the right leg Essential hypertension Hyperlipidemia Chronic iron deficiency anemia requiring iron infusions History of DVT, anticoagulated on Xarelto on an outpatient basis Hypothyroidism Ex-smoker, remote history Acute metabolic encephalopathy with confusion, improving. Possible steroids induced psychosis Paroxysmal supraventricular tachycardia, on Cardizem drip Recommendation: Continue Precedex and titrate accordingly until discontinued. Continue to monitor in the ICU Continue bronchodilators Continue diuretics Discontinue steroids Continue Cardizem and cardiac meds Continue GI and DVT prophylaxis We'll continue to follow. Time with Patient: Less than 30
[2023-01-11] MEDS: BENZOCAINE/MENTHOL LOZENG 1 EACH LOZENGE MUCOUS MEM PRN (11:55)
[2023-01-11 12:02] LABS: Glucose,Whole Blood 226 mg/dL (70-110)
[2023-01-11] MEDS: FERROUS SULFATE 325 MG TAB PO SCH (12:05)
--- NOTE | 2023-01-11 13:37 | P.PN ---
Subjective Progress Note Date: 01/11/23 Patient did not get much rest overnight, rec'd dilaudid for pain and is very sleepy on exam today. Precedex was increased for agitation Gen: awake, alert HEENT: normocephalic, atraumatic, good hearing acuity, moist mucous membranes Resp: good air exchange, breathing comfortably with no accessory muscle use, diffuse wheezing CVS: good distal perfusion x 4, regular rate and rhythm without murmurs GI: soft, NTTP, ND : no SPT, no CVAT, hughes catheter not present MSK: no pitting edema, no clubbing Neuro: non-focal, moving all extremities Psych: cooperative, euthymic mood Hospital course: Patient is a 77-year-old female with PMH of CAD post 2 stents 3 years ago, PAD post right lower extremity stenting, bilateral endarterectomy, 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 In the ED, she was requiring 4 L nasal cannula to maintain O2 saturation in the low 90s. Chest x-ray showed chronic reticulonodular changes with no acute process. CT brain showed chronic small vessel ischemic changes without acute intracranial process. CBC shows hemoglobin of 10.4 with MCV of 91.3. Coagulation panel within normal limits. BMP shows chloride 109 and glucose 105. Patient is admitted under orthopedic surgery with [facility] on consultation. EKG shows NSR with ventricular rate of 71. Echocardiogram shows EF 60% with mild concentric LVH, LA enlargement, mild MR, mild pulmonary HTN. 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, hypertension, dyslipidemia, depression, hypothyroidism Plan: Today, patient is afebrile, 154/59, heart rate 69 Basic metabolic panel shows Na of 138, BUN of 22 COVID negative Continue precedex as needed Resume patient's Xarelto and Plavix for history of PAD Discontinue dilaudid IV Continue norco PRN, tylenol PRN Continue duo nebs Continue Symbicort Continue Solu-Medrol Patient is full code Objective - Vital Signs Vital signs: Vital Signs Temp 98.6 F 01/11/23 12:00 Pulse 69 01/11/23 13:00 Resp 12 01/11/23 13:00 BP 154/59 01/11/23 13:00 Pulse Ox 97 01/11/23 13:00 FiO2 40 01/11/23 09:58 Intake & Output 01/10/23 01/11/23 01/11/23 18:59 06:59 18:59 Intake Total 946.350 811.257 524.836 Output Total 2425 2100 295 Balance -1478.650 -1288.743 229.836 Weight 72.3 kg Intake: IV 75 220 20 Lactated Ringers 1,000ml 75 @ 75ml/hr Sodium Chloride 0.9% 1, 220 20 000 ml @ 20 mls/hr IV . Q24H JOSIE Rx#:[id number] Intake, IV Titration 391.350 51.257 304.836 Amount Dexmedetomidine/0.9% NaCl 66.350 31.257 34.836 (Pmx) 400 mcg In Empty Bag 1 bag @ 0.2 MCG/KG/HR 3.379 mls/hr IV .Q24H JOSIE Rx#:[id number] Diltiazem 125 mg In 30 Sodium Chloride 0.9% 100 ml @ 5 MG/HR 5 mls/hr IV .Q24H JOSIE Rx#:[id number] Sodium Chloride 0.9% 1, 275 20 240 000 ml @ 20 mls/hr IV . Q24H JOSIE Rx#:[id number] ceFAZolin 2 gm In Sodium 50 Chloride 0.9% 50 ml @ 100 mls/hr IVPB Q8HR JOSIE Rx# :[id number] Oral 480 540 200 Output: Urine 2425 2100 295 Other: Voiding Method Indwelling Catheter Indwelling Catheter Indwelling Catheter - Labs CBC & Chem 7: 01/10/23 04:15 01/11/23 03:46 Labs: Abnormal Lab Results - Last 24 Hours (Table) 01/10/23 01/10/23 01/11/23 Range/Units 16:08 21:17 03:46 BUN 22 H (7-17) mg/dL Glucose 176 H (74-99) mg/dL POC Glucose (mg/dL) 199 H 176 H (70-110) mg/dL 01/11/23 01/11/23 Range/Units 06:30 12:00 BUN (7-17) mg/dL Glucose (74-99) mg/dL POC Glucose (mg/dL) 209 H 226 H (70-110) mg/dL
[2023-01-11 16:12] LABS: Glucose,Whole Blood 197 mg/dL (70-110)
[2023-01-11 19:58] LABS: Glucose,Whole Blood 185 mg/dL (70-110)
[2023-01-11] MEDS: ATORVASTATIN 80 MG TAB PO SCH (20:04)
[2023-01-11] MEDS: SENNOSIDES-DOCUSATE SODIUM 1 EACH TAB PO SCH (20:04)
[2023-01-11] MEDS: NEBIVOLOL 5 MG TAB PO SCH (20:05)
[2023-01-11 20:12] LABS: Anisocytosis Slight; Basophils % (A) 0 %; Eosinophils % (A) 0 %; HCT 29.5 % (34.0-46.0); HGB 9.8 gm/dL (11.4-16.0); Lymphocytes # (A) 0.7 k/uL (1.0-4.8); Lymphocytes % (A) 10 %; MCH 30.3 pg (25.0-35.0); MCHC 33.3 g/dL (31.0-37.0); MCV 90.9 fL (80.0-100.0); Mean Platelet Volume 8.7; Monocytes # (A) 0.3 k/uL (0-1.0); Monocytes % (A) 4 %; Neutrophils # (A) 5.6 k/uL (1.3-7.7); Neutrophils % (A) 84 %; Platelet Count 175 k/uL (150-450); RBC 3.25 m/uL (3.80-5.40); RDW 18.4 % (11.5-15.5); WBC 6.6 k/uL (3.8-10.6)
[2023-01-12] MEDS: DILTIAZEM 125 MG in SODIUM CHLORIDE 0.9% 100 ML IV SCH (01:52)
[2023-01-12 04:41] LABS: Anisocytosis Slight; Basophils % (A) 0 %; Eosinophils # (A) 0.1 k/uL (0-0.7); Eosinophils % (A) 1 %; HGB 9.5 gm/dL (11.4-16.0); Lymphocytes # (A) 1.2 k/uL (1.0-4.8); Lymphocytes % (A) 20 %; MCH 28.7 pg (25.0-35.0); MCHC 31.7 g/dL (31.0-37.0); MCV 90.6 fL (80.0-100.0); Mean Platelet Volume 8.8; Monocytes # (A) 0.3 k/uL (0-1.0); Monocytes % (A) 5 %; Neutrophils # (A) 4.4 k/uL (1.3-7.7); Neutrophils % (A) 74 %; Platelet Count 158 k/uL (150-450); RBC 3.31 m/uL (3.80-5.40); RDW 18.3 % (11.5-15.5); WBC 5.9 k/uL (3.8-10.6)
[2023-01-12 04:55] LABS: African American GFR (CKD) 88 (>60 ml/min/1.73 sqM); Anion Gap 7 mmol/L; Blood Urea Nitrogen 23 mg/dL (7-17); Calcium 8.7 mg/dL (8.4-10.2); Carbon Dioxide 27 mmol/L (22-30); Chloride 104 mmol/L (98-107); Glucose 131 mg/dL (74-99); Magnesium 2.3 mg/dL (1.6-2.3); Non-African American GFR(CKD) 77 (>60 ml/min/1.73 sqM); Potassium 4.1 mmol/L (3.5-5.1); Sodium 138 mmol/L (137-145)
[2023-01-12] MEDS: INSULIN ASPART (NovoLOG) 100 UNIT/ML VIAL SQ SCH ×4 (05:43→21:00)
--- NOTE | 2023-01-12 06:44 | XR ---
EXAMINATION TYPE: XR chest 1V portable DATE OF EXAM: 01/12/2023 5:20 AM COMPARISON: Chest radiographs from 01/09/2023, CTA chest 01/10/2023 TECHNIQUE: XR chest 1V portable Portable AP radiograph of the chest. CLINICAL INDICATION:Female, 77 years old with history of chf exacerbation; FINDINGS: Lungs/Pleura: There is no evidence of pleural effusion, focal consolidation, or pneumothorax. Hyperi nflation. Biapical pleural-parenchymal scarring. Chronic senescent parenchymal change. Pulmonary vascularity: Unremarkable. Heart/mediastinum: Cardiomediastinal silhouette is enlarged and stable. Atherosclerotic calcificatio ns are seen in the aorta. Musculoskeletal: No acute osseous pathology. IMPRESSION: Chronic changes of CHF and COPD without radiographic evidence for acute process.
--- NOTE | 2023-01-12 07:13 | P.PN ---
Subjective Progress Note Date: 01/12/23 Principal diagnosis: Fall with trauma Right IT fracture Multiple comorbidities Patient seen and examined this morning. She is currently sitting in chair at bedside. Patient is much more alert and oriented this morning. RN states that he has weaned patient from Precedex overnight. Patient is very apologetic this morning in regards to her behavior over the past few days, emotional support provided. Family member is at bedside. Surgical incision to the right hip is dry and intact, scant amount of shadowing noted. Patient reports her pain is managed on current regimen. Encouraged patient to work with physical therapy today. Patient has been afebrile, denies nausea/vomiting, or chest pain. Objective - Vital Signs Vital signs: Vital Signs Temp 98 F 01/12/23 00:00 Pulse 71 01/12/23 05:00 Resp 19 01/12/23 05:00 BP 171/73 01/12/23 05:00 Pulse Ox 93 L 01/12/23 05:00 FiO2 40 01/11/23 09:58 Intake & Output 01/11/23 01/11/23 01/12/23 06:59 18:59 06:59 Intake Total 811.257 944.836 457.658 Output Total 2100 540 330 Balance -1288.743 404.836 127.658 Weight 72.3 kg 72.7 kg Intake: IV 220 20 200 Sodium Chloride 0.9% 1, 220 20 200 000 ml @ 20 mls/hr IV . Q24H JOSIE Rx#:[id number] Intake, IV Titration 51.257 574.836 257.658 Amount Dexmedetomidine/0.9% NaCl 31.257 34.836 158.491 (Pmx) 400 mcg In Empty Bag 1 bag @ 0.2 MCG/KG/HR 3.379 mls/hr IV .Q24H JOSIE Rx#:[id number] Diltiazem 125 mg In 60 99.167 Sodium Chloride 0.9% 100 ml @ 5 MG/HR 5 mls/hr IV .Q24H JOSIE Rx#:[id number] Sodium Chloride 0.9% 1, 20 480 000 ml @ 20 mls/hr IV . Q24H JOSIE Rx#:[id number] Oral 540 350 Output: Urine 2100 540 330 Other: Voiding Method Indwelling Catheter Indwelling Catheter Indwelling Catheter - Exam Inspection: Surgical incision to the right hip, dressing is clean dry and intact. Sensation: Sensation is equal, symmetric, bilaterally intact throughout the upper and lower extremities Palpation: Nontender to palpation throughout bilateral upper and left lower extremities and throughout spine exam. TTP over the right hip region. Range of motion: Patient does have full range of motion bilateral upper and left lower extremities on exam. Limited ROM to the right lower extremity due to pain. Motor: 5/5 in all major motor groups in the bilateral upper and left lower extremities, 4/5 right lower extremity Special tests: Negative Homans bilaterally. Negative Moris bilaterally. Negative clonus bilaterally. Neurovascular: Radial pulse intact, 2+ bilaterally. Cap refill under 3 seconds in digits upper extremities. - Labs CBC & Chem 7: 01/12/23 04:17 01/12/23 04:17 Labs: Abnormal Lab Results - Last 24 Hours (Table) 01/11/23 01/11/23 01/11/23 Range/Units 12:00 16:10 19:27 RBC 3.25 L (3.80-5.40) m/uL Hgb 9.8 L (11.4-16.0) gm/dL Hct 29.5 L (34.0-46.0) % RDW 18.4 H (11.5-15.5) % Lymphocytes # 0.7 L (1.0-4.8) k/uL BUN (7-17) mg/dL Glucose (74-99) mg/dL POC Glucose (mg/dL) 226 H 197 H (70-110) mg/dL 01/11/23 01/12/23 01/12/23 Range/Units 19:57 04:17 04:17 RBC 3.31 L (3.80-5.40) m/uL Hgb 9.5 L (11.4-16.0) gm/dL Hct 30.0 L (34.0-46.0) % RDW 18.3 H (11.5-15.5) % Lymphocytes # (1.0-4.8) k/uL BUN 23 H (7-17) mg/dL Glucose 131 H (74-99) mg/dL POC Glucose (mg/dL) 185 H (70-110) mg/dL Assessment and Plan Assessment: Postop day 3: Right hip IM nail Fall with trauma Right IT fracture Multiple comorbidities Plan: -Appreciate it support consultant and team management. -Activity: Ambulate QID, OOB all meals, up and about, limit lifting bending twisting to less than 5 lbs. Use walker or cane if needed for stability. -Daily PT/OT, increase ambulation strength and balance. -Pain control: Adequate at this time -Meds: reviewed -GI ppx: senna, Miralax -Discontinue hughes once patient is up and about. -DVT PPX: Plavix -Hygiene: Shower today. Maintain dressing clean and dry. -Encourage IS 10x/hr -Dispo: clinical pending. Patient to [facility] at discharge. *I reviewed and discussed this case with my attending Dr. Hidalgo, whom has reviewed this chart and films and is in agreement with assessment and plan of care as outlined above. I have personally seen and examined the patient, performed the documentation and the assessment and plan as written. Number of minutes spent on the visit: 10m.
[2023-01-12] MEDS: IPRATROPIUM-ALBUTEROL 3 ML NEB INHALATION SCH ×4 (07:38→20:05)
[2023-01-12] MEDS: SYMBICORT 160-4.5 MCG INHALER INHALATION SCH ×2 (07:39→20:05)
[2023-01-12] MEDS: RIVAROXABAN 2.5 MG TABLET PO SCH ×2 (08:30→21:04)
[2023-01-12] MEDS: SERTRALINE 100 MG TAB PO SCH (08:30)
[2023-01-12] MEDS: FAMOTIDINE 20 MG TAB PO SCH (08:30)
[2023-01-12] MEDS: LEVOTHYROXINE 25 MCG TAB PO SCH (08:30)
[2023-01-12] MEDS: CLOPIDOGREL 75 MG TAB PO SCH (08:30)
[2023-01-12] MEDS ORDERED: FUROSEMIDE 10 MG/ML 2 ML VIAL IV ONE (09:30)
--- NOTE | 2023-01-12 11:28 | P.PN ---
Subjective Progress Note Date: 01/12/23 Principal diagnosis: Right peritrochanteric IT fracture, status post right hip IMN fixation. Postoperative day #3 I am seeing this patient in new consultation today 01/09/2023 after the patient was transferred from an outside facility in [facility]. Patient is a 77-year-old female with past medical history significant for COPD, asthma, coronary artery disease, prior heart catheterizations with 2 cardiac stents, hypertension, hyperlipidemia, peripheral arterial disease with 3 right leg stents, chronic anemia requiring iron infusions, DVT, and is a remote ex-smoker. Patient is a current resident of [place]. She does reportedly follow with a biomedical instrument technician for management of her asthma and COPD. She states that she uses Trelegy inhaler and when necessary albuterol nebulizations on an outpatient basis. Patient was transferred from [facility] in [facility] yesterday afternoon. She reportedly tripped over a dog bowl while at her daughter's house on Monday. She was then taken to the hospital, and was found to have a right hip fracture. CT of the pelvis without contrast at outside facility showed a minimally displaced comminuted right femoral intra- trochanteric fracture with comminution seen more extensive in the vicinity of t he greater trochanter. Peripheral pulses are intact and there are no signs of compartment syndrome. She is scheduled for surgery with Dr. Hidalgo tomorrow. We were consulted for management of the patient's COPD. She is wheezy on auscultation. She denies any shortness of breath, fevers/chills, change in her chronic cough, sputum production, chest pain, hemoptysis. Denies sick contacts. She also denies any chest pain, heart palpitations, lightheadedness, syncope, lower extremity swelling, orthopnea. Patient is currently sitting up in bed, on 3 L nasal cannula, in no acute distress. She is oxygenating at 90%. Chest x- ray on arrival showed some chronic upper lobe reticulonodular changes without any focal consolidation or evidence of pneumonia. CBC on arrival showed a WBC count of 7.2, hemoglobin 10.4, hematocrit 32.1, platelets 155. BMP was unremarkable. Normal saline is currently infusing at 75 mL per hour. Patient is anticoagulated on Xarelto on an outpatient basis, and clinical suspicion for pulmonary embolism is low. ECG on arrival shows no obvious acute ischemic coker es. Patient appears stable and admitted to the general medical floor. Patient was reevaluated today on 01/10/2023, patient required transfer to the ICU yesterday after her surgery, mostly because her O2 saturation Fluctuating up and down, patient was extremely restless and agitated, hence I recommended transferred to the ICU and place the patient on Precedex. Overnight the patient did fairly well on Precedex, remains on 0.4 mcg/kg/h, her IV fluid is 0.9 at 75 mL/h I cut it down to KVO chest x-ray showed mostly bilateral pleural effusion and possibly some fluid overload and the patient will be getting Lasix 40 mg IV push 1. Last night she was on BiPAP 12/6/40% now she is on 4 L nasal carrier. Her mentation seems to be better today remains slow but significant improvement in her mentation compared to yesterday after the surgery. WBC count is 7.2 hemoglobin is 9 electrolytes are normal, renal profile is normal patient had a CT angiogram of the chest last night, negative for thromboembolic disease Reevaluated today on 01/11/2023, patient remains in the ICU, patient is intermittently confused, last night she had an episode of supraventricular tachycardia, cardiology recommended Cardizem which is running now at 5 mg per hour. Patient remains on Precedex for her intermittent confusion and agitation, and she is now on 0.8 mcg/kg/h of Precedex. Intermittently on BiPAP 12/6/40%. Today I discontinued her Solu-Medrol altogether as I believe she may have symptoms of steroids induced psychosis. Labs were reviewed, basically unremarkable. She has a relatively normal basic metabolic profile normal renal profile blood sugars a bit elevated at 209 Reevaluated today on 01/12/2023, patient is doing great, and mental status is significantly better today compared to the last 2 days patient remains off steroids altogether. Feeling better, she is fully alert and oriented 3, denied being short of breath, her chest x-ray showed mild pulmonary edema, and recommended one dose of Lasix, patient remains on bronchodilators for underlying COPD. WBC count is 5.9 hemoglobin 9.5 electrodes are normal renal profile is normal Objective - Vital Signs Vital signs: Vital Signs Temp 97.9 F 01/12/23 08:00 Pulse 73 01/12/23 10:00 Resp 22 01/12/23 10:00 BP 121/54 01/12/23 10:00 Pulse Ox 96 01/12/23 10:00 FiO2 40 01/11/23 09:58 Intake & Output 01/11/23 01/12/23 01/12/23 18:59 06:59 18:59 Intake Total 944.836 477.658 140 Output Total 540 330 180 Balance 404.836 147.658 -40 Weight 72.7 kg Intake: IV 20 220 40 Sodium Chloride 0.9% 1, 20 220 40 000 ml @ 20 mls/hr IV . Q24H [facility] Rx#:[id number] Intake, IV Titration 574.836 257.658 Amount Dexmedetomidine/0.9% NaCl 34.836 158.491 (Pmx) 400 mcg In Empty Bag 1 bag @ 0.2 MCG/KG/HR 3.379 mls/hr IV .Q24H [facility] Rx#:[id number] Diltiazem 125 mg In 60 99.167 Sodium Chloride 0.9% 100 ml @ 5 MG/HR 5 mls/hr IV .Q24H [facility] Rx#:[id number] Sodium Chloride 0.9% 1, 480 000 ml @ 20 mls/hr IV . Q24H [facility] Rx#:[id number] Oral 350 100 Output: Urine 540 330 180 Other: Voiding Method Indwelling Catheter Indwelling Catheter Indwelling Catheter - Exam Physical Exam: Revealed a 77-year-old female in no distress on 2 L nasal cannula with O2 sats 96% Head: Atraumatic, normocephalic. HEENT:[Neck is supple.] [No neck masses.] [No thyromegaly.] [No JVD.] Chest: [Clear throughout no crackles or rhonchi or wheezes Cardiac Exam: [Normal S1 and S2, no S3 gallop, no murmur.] Abdomen: [Soft, nontender, no megaly, no rebound, no guarding, normal bowel sounds.] Extremities: [No clubbing, no edema, no cyanosis.] Neurological Exam: Alert and oriented 3 with focal deficit Psychiatric: Normal mood, normal affect, normal mental status examination. - Labs CBC & Chem 7: 01/12/23 04:17 01/12/23 04:17 Labs: Abnormal Lab Results - Last 24 Hours (Table) 01/11/23 01/11/23 01/11/23 Range/Units 12:00 16:10 19:27 RBC 3.25 L (3.80-5.40) m/uL Hgb 9.8 L (11.4-16.0) gm/dL Hct 29.5 L (34.0-46.0) % RDW 18.4 H (11.5-15.5) % Lymphocytes # 0.7 L (1.0-4.8) k/uL BUN (7-17) mg/dL Glucose (74-99) mg/dL POC Glucose (mg/dL) 226 H 197 H (70-110) mg/dL 01/11/23 01/12/23 01/12/23 Range/Units 19:57 04:17 04:17 RBC 3.31 L (3.80-5.40) m/uL Hgb 9.5 L (11.4-16.0) gm/dL Hct 30.0 L (34.0-46.0) % RDW 18.3 H (11.5-15.5) % Lymphocytes # (1.0-4.8) k/uL BUN 23 H (7-17) mg/dL Glucose 131 H (74-99) mg/dL POC Glucose (mg/dL) 185 H (70-110) mg/dL Assessment and Plan Assessment: Impression: Right femoral intertrochanteric fracture , status post Right hip IMN fixation , postoperative day #3 Acute hypoxemic respiratory failure, multifactorial suspect a combination of acute diastolic congestive heart failure/pulmonary edema with bilateral pleural effusions and suspect underlying COPD with acute COPD exacerbation Coronary artery disease, with 2 prior cardiac stents History of peripheral arterial disease, with prior revascularization and 3 sten ts to the right leg Essential hypertension Hyperlipidemia Chronic iron deficiency anemia requiring iron infusions History of DVT, anticoagulated on Xarelto on an outpatient basis Hypothyroidism Ex-smoker, remote history Acute metabolic encephalopathy with confusion, improving. Possible steroids ind uced psychosis, resolved after stopping her Solu-Medrol and/or prednisone Paroxysmal supraventricular tachycardia, off Cardizem, cardiology is addressing Recommendation: Transfer patient out of the ICU to a monitor bed on the cardiac floor for now. Continue to hold steroids. Continue bronchodilators Continue diuretics, will give the patient 1 dose of Lasix this morning. Cardiology to decide on cardiac arrhythmia medications Continue GI and DVT prophylaxis Consider discharge planning in the next 24 hours We'll continue to follow. Time with Patient: Less than 30
--- NOTE | 2023-01-12 11:30 | P.PN ---
Subjective Progress Note Date: 01/12/23 Subjective: Patient seen and examined at bedside. No acute events overnight. Claims that her breathing is a lot better. Likely transfer out of the ICU today. Continues to have Farris catheter in place. Pertinent positives and negatives as discussed above, a complete review of systems was performed and all other systems are negative. Vitals Signs Reviewed. General: nontoxic, no distress, appears at stated age Derm: warm, dry Head: atraumatic, normocephalic, symmetric Eyes: EOMI, no lid lag, anicteric sclera Mouth: no lip lesion, mucus membranes moist Cardiovascular: S1S2 reg, no murmur Lungs: CTA bilateral, no rhonchi, no rales , no accessory muscle use, supplemental oxygen Abdominal: soft, nontender to palpation, no guarding, no appreciable organomegaly Ext: no gross muscle atrophy, no edema, no contractures Neuro: CN II-XI grossly intact, no focal neuro deficits Psych: Alert, oriented, appropriate affect Data Reviewed Today: Pertinent Labs: WBC 5.9, hemoglobin 9.5, sodium 138, creatinine 0.75, blood sugars range between 131-226, magnesium 2.3 Imaging: Chest x-ray independently interpreted, no acute process Assessment and Plan: Mechanical fall with trauma, right IT fracture status post surgery Acute hypoxic respiratory failure secondary to COPD exacerbation Suspected mild CHF exacerbation Acute delirium, resolved Supraventricular tachycardia, resolved History of CAD status post stents History of PAD status post stents History of bilateral endarterectomy History of CVA Hypertension Dyslipidemia Depression Hypothyroidism Hyperglycemia -Orthopedic note reviewed, patient likely [facility] discharge -Not on steroids, discontinued yesterday due to concerns for steroid-induced psychosis -On bronchodilators -Pulmonology following -Cardiology following, on beta edenilson - Continue Plavix and Xarelto -Rest of the home medications reconciled -Hyperglycemia, likely steroid-induced, continue sliding scale insulin, no changes today Thank you for allowing us to participate in the care of this pleasant patient. Do not hesitate to contact us with questions. Someone can be reached from the [facility] hospitalist group all hours of the day at [phone] or via [email or web address]. Objective - Vital Signs Vital signs: Vital Signs Temp 97.9 F 01/12/23 08:00 Pulse 73 01/12/23 10:00 Resp 22 01/12/23 10:00 BP 121/54 01/12/23 10:00 Pulse Ox 96 01/12/23 10:00 FiO2 40 01/11/23 09:58 Intake & Output 01/11/23 01/12/23 01/12/23 18:59 06:59 18:59 Intake Total 944.836 477.658 140 Output Total 540 330 180 Balance 404.836 147.658 -40 Weight 72.7 kg Intake: IV 20 220 40 Sodium Chloride 0.9% 1, 20 220 40 000 ml @ 20 mls/hr IV . Q24H [facility] Rx#:[id number] Intake, IV Titration 574.836 257.658 Amount Dexmedetomidine/0.9% NaCl 34.836 158.491 (Pmx) 400 mcg In Empty Bag 1 bag @ 0.2 MCG/KG/HR 3.379 mls/hr IV .Q24H [facility] Rx#:[id number] Diltiazem 125 mg In 60 99.167 Sodium Chloride 0.9% 100 ml @ 5 MG/HR 5 mls/hr IV .Q24H [facility] Rx#:[id number] Sodium Chloride 0.9% 1, 480 000 ml @ 20 mls/hr IV . Q24H [facility] Rx#:[id number] Oral 350 100 Output: Urine 540 330 180 Other: Voiding Method Indwelling Catheter Indwelling Catheter Indwelling Catheter - Labs CBC & Chem 7: 01/12/23 04:17 01/12/23 04:17 Labs: Abnormal Lab Results - Last 24 Hours (Table) 01/11/23 01/11/23 01/11/23 Range/Units 12:00 16:10 19:27 RBC 3.25 L (3.80-5.40) m/uL Hgb 9.8 L (11.4-16.0) gm/dL Hct 29.5 L (34.0-46.0) % RDW 18.4 H (11.5-15.5) % Lymphocytes # 0.7 L (1.0-4.8) k/uL BUN (7-17) mg/dL Glucose (74-99) mg/dL POC Glucose (mg/dL) 226 H 197 H (70-110) mg/dL 01/11/23 01/12/23 01/12/23 Range/Units 19:57 04:17 04:17 RBC 3.31 L (3.80-5.40) m/uL Hgb 9.5 L (11.4-16.0) gm/dL Hct 30.0 L (34.0-46.0) % RDW 18.3 H (11.5-15.5) % Lymphocytes # (1.0-4.8) k/uL BUN 23 H (7-17) mg/dL Glucose 131 H (74-99) mg/dL POC Glucose (mg/dL) 185 H (70-110) mg/dL
[2023-01-12 11:43] LABS: Glucose,Whole Blood 109 mg/dL (70-110)
[2023-01-12] MEDS: FERROUS SULFATE 325 MG TAB PO SCH (11:54)
[2023-01-12] MEDS: ACETAMINOPHEN TAB 325 MG TAB PO PRN ×2 (13:00→18:27)
[2023-01-12] MEDS: BENZOCAINE/MENTHOL LOZENG 1 EACH LOZENGE MUCOUS MEM PRN (13:03)
--- NOTE | 2023-01-12 14:03 | PN ---
PROGRESS NOTE HISTORY OF PRESENT ILLNESS: A 77-year-old lady who is admitted to hospital with hip fracture and we were involved in her care because of acute-onset confusional state. She is doing well, much better. Still has intermittent episodes of confusion. She is currently on Lipitor, Plavix, iron, Synthroid, insulin, Xarelto, and Plavix which she is going to continue. PHYSICAL EXAMINATION: GENERAL: Comfortable at rest. VITAL SIGNS: Stable. CHEST: Reveals diminished air entry at the bases. HEART: Reveals first and second heart sounds. No gallop. No murmur. ABDOMEN: Soft. EXTREMITIES: Exam of extremities did not reveal any edema. Peripheral pulses are felt. ASSESSMENT: 1. Peripheral arterial disease. 2. Hip fracture, status post surgery. PLAN: The patient will continue current medications. MMODL / IJN: [id number] /
[2023-01-12 16:15] LABS: Glucose,Whole Blood 135 mg/dL (70-110)
[2023-01-12 20:36] LABS: Glucose,Whole Blood 131 mg/dL (70-110)
[2023-01-12] MEDS: SENNOSIDES-DOCUSATE SODIUM 1 EACH TAB PO SCH (21:04)
[2023-01-12] MEDS: ATORVASTATIN 80 MG TAB PO SCH (21:04)
[2023-01-12] MEDS: NEBIVOLOL 5 MG TAB PO SCH (21:04)
[2023-01-13] MEDS: ACETAMINOPHEN TAB 325 MG TAB PO PRN ×2 (00:15→08:59)
[2023-01-13 05:56] LABS: Glucose,Whole Blood 120 mg/dL (70-110)
[2023-01-13] MEDS: INSULIN ASPART (NovoLOG) 100 UNIT/ML VIAL SQ SCH ×2 (05:58→14:05)
--- NOTE | 2023-01-13 08:10 | P.PN ---
Subjective Progress Note Date: 01/13/23 Principal diagnosis: Fall with trauma Right IT fracture Multiple comorbidities Patient seen and examined this morning. No acute events overnight. She states she is feeling much better today, patient is alert and oriented 3. Slight shadowing noted on surgical dressings of the right hip, new dressing applied this morning. Patient reports that she did not sleep well last night due to not being able to be comfortable in bed. Informed patient to utilize ice packs as needed. Patient is cleared from orthopedic standpoint for discharge. Patient has been afebrile, denies nausea/vomiting, or chest pain. Objective - Vital Signs Vital signs: Vital Signs Temp 98.5 F 01/13/23 03:23 Pulse 78 01/13/23 03:23 Resp 16 01/13/23 03:23 BP 136/60 01/13/23 03:23 Pulse Ox 96 01/13/23 03:23 FiO2 40 01/11/23 09:58 Intake & Output 01/12/23 01/13/23 01/13/23 18:59 06:59 18:59 Intake Total 740 Output Total 1630 200 Balance -890 -200 Intake: IV 40 Sodium Chloride 0.9% 1, 40 000 ml @ 20 mls/hr IV . Q24H [facility] Rx#:[id number] Oral 700 Output: Urine 1630 200 Other: Voiding Method Indwelling Catheter Toilet # Voids 1 # Bowel Movements 1 - Exam Inspection: Surgical incision to the right hip, dressing is clean dry and in tact. Dressing changed 01/13/23. Sensation: Sensation is equal, symmetric, bilaterally intact throughout the upper and lower extremities Palpation: Nontender to palpation throughout bilateral upper and left lower extremities and throughout spine exam. TTP over the right hip region. Range of motion: Patient does have full range of motion bilateral upper and left lower extremities on exam. Limited ROM to the right lower extremity due to pain. Motor: 5/5 in all major motor groups in the bilateral upper and left lower extremities, 4/5 right lower extremity Special tests: Negative Homans bilaterally. Negative Moris bilaterally. Negative clonus bilaterally. Neurovascular: Radial pulse intact, 2+ bilaterally. Cap refill under 3 seconds in digits upper extremities. - Labs CBC & Chem 7: 01/12/23 04:17 01/12/23 04:17 Labs: Abnormal Lab Results - Last 24 Hours (Table) 01/12/23 01/12/23 01/13/23 Range/Units 16:13 20:33 05:54 POC Glucose (mg/dL) 135 H 131 H 120 H (70-110) mg/dL Assessment and Plan Assessment: Postop day 4: Right hip IM nail Fall with trauma Right IT fracture Multiple comorbidities Plan: -Appreciate proposal consultant and team management. -Activity: Ambulate QID, OOB all meals, up and about, limit lifting bending twisting to less than 5 lbs. Use walker or cane if needed for stability. -Daily PT/OT, increase ambulation strength and balance. -Pain control: Adequate at this time -Meds: reviewed -GI ppx: senna, Miralax -DVT PPX: Plavix -Hygiene: Shower today. Maintain dressing clean and dry. -Encourage IS 10x/hr -Dispo: Discharge home with family vs [facility]. *I reviewed and discussed this case with my attending Dr. Hidalgo, whom has reviewed this chart and films and is in agreement with assessment and plan of care as outlined above. I have personally seen and examined the patient, performed the documentation and the assessment and plan as written. Number of minutes spent on the visit: 10m.
[2023-01-13] MEDS: IPRATROPIUM-ALBUTEROL 3 ML NEB INHALATION SCH ×2 (08:44→12:35)
[2023-01-13] MEDS: SYMBICORT 160-4.5 MCG INHALER INHALATION SCH (08:45)
[2023-01-13] MEDS: LEVOTHYROXINE 25 MCG TAB PO SCH (08:51)
[2023-01-13] MEDS: SERTRALINE 100 MG TAB PO SCH (08:51)
[2023-01-13] MEDS: RIVAROXABAN 2.5 MG TABLET PO SCH (08:52)
[2023-01-13] MEDS: FAMOTIDINE 20 MG TAB PO SCH (08:52)
[2023-01-13] MEDS: CLOPIDOGREL 75 MG TAB PO SCH (08:52)
--- NOTE | 2023-01-13 10:55 | P.PN ---
Subjective HISTORY OF PRESENT ILLNESS: Patient is status post right hip nailing on 01/09/2023. Patient examined this morning at the bedside. Patient denies chest pain or pressure. She denies shortness of breath. Her blood pressures have been elevated during hospitalization. The patient states she does not have a history of high blood pressure and states her blood pressure usually is within normal limits at home when she checks it. PHYSICAL EXAM: VITAL SIGNS: Reviewed. GENERAL: Well-developed in no acute distress. NECK: Supple. No JVD or thyromegaly LUNGS: Respirations even and unlabored. Lungs essentially clear to auscultation bilaterally. HEART: Regular rate and rhythm. S1 and S2 heard. EXTREMITIES: Normal range of motion. No clubbing or cyanosis. Peripheral pulses intact. No lower extremity edema ASSESSMENT: Mechanical fall, status post right hip nailing History of coronary artery disease with previous stenting History of peripheral arterial disease with previous stenting History of bilateral endarterectomy History of CVA Hyperlipidemia PLAN: Continue current cardiac medications Continue to monitor patient's blood pressure Patient currently refusing to be started on anti-hypertensive medications. Patient instructed to check her blood pressure at home and keep a log of blood pressures and bring with her to her follow-up appointment. Patient agreeable Patient is stable from a cardiac standpoint Nurse practitioner note has been reviewed by physician. Signing provider agrees with the documented findings, assessment, and plan of care. Objective - Vital Signs Vital signs: Vital Signs Temp 98.1 F 01/13/23 08:00 Pulse 75 01/13/23 09:00 Resp 17 01/13/23 08:00 BP 184/68 01/13/23 08:00 Pulse Ox 94 L 01/13/23 08:00 FiO2 40 01/11/23 09:58 Intake & Output 01/12/23 01/13/23 01/13/23 18:59 06:59 18:59 Intake Total 740 330 Output Total 1630 200 Balance -890 -200 330 Intake: IV 40 Sodium Chloride 0.9% 1, 40 000 ml @ 20 mls/hr IV . Q24H [facility] Rx#:[id number] Oral 700 330 Output: Urine 1630 200 Other: Voiding Method Indwelling Catheter Toilet Toilet # Voids 1 1 # Bowel Movements 1 1 - Labs CBC & Chem 7: 01/12/23 04:17 01/12/23 04:17 Labs: Abnormal Lab Results - Last 24 Hours (Table) 01/12/23 01/12/23 01/13/23 Range/Units 16:13 20:33 05:54 POC Glucose (mg/dL) 135 H 131 H 120 H (70-110) mg/dL
--- NOTE | 2023-01-13 11:14 | P.PN ---
Subjective Progress Note Date: 01/13/23 Subjective: Patient seen and examined at bedside. No acute events overnight. Claims that her breathing is a lot better. Pertinent positives and negatives as discussed above, a complete review of systems was performed and all other systems are negative. Vitals Signs Reviewed. General: nontoxic, no distress, appears at stated age Derm: warm, dry Head: atraumatic, normocephalic, symmetric Eyes: EOMI, no lid lag, anicteric sclera Mouth: no lip lesion, mucus membranes moist Cardiovascular: S1S2 reg, no murmur Lungs: CTA bilateral, no rhonchi, no rales , no accessory muscle use, suppleme ntal oxygen Abdominal: soft, nontender to palpation, no guarding, no appreciable organomegaly Ext: no gross muscle atrophy, no edema, no contractures Neuro: CN II-XI grossly intact, no focal neuro deficits Psych: Alert, oriented, appropriate affect Data Reviewed Today: Pertinent Labs: Blood sugars range between 109-135 Imaging: No new imaging today Assessment and Plan: Mechanical fall with trauma, right IT fracture status post surgery Acute hypoxic respiratory failure secondary to COPD exacerbation, now resolved Suspected mild CHF exacerbation, resolved Acute delirium, resolved Supraventricular tachycardia, resolved History of CAD status post stents History of PAD status post stents History of bilateral endarterectomy History of CVA Hypertension Dyslipidemia Depression Hypothyroidism Hyperglycemia -Discussed management with orthopedic surgery, patient to be discharged home as she lives in [place], she will require physical therapy at home -On bronchodilators -Pulmonology following -Cardiology note reviewed, patient is stable for discharge -Continue Plavix and Xarelto Patient is medically optimized for discharge home Thank you for allowing us to participate in the care of this pleasant patient. Do not hesitate to contact us with questions. Someone can be reached from the [facility] hospitalist group all hours of the day at [phone] or via [employer]. Objective - Vital Signs Vital signs: Vital Signs Temp 98.1 F 01/13/23 08:00 Pulse 75 01/13/23 09:00 Resp 17 01/13/23 08:00 BP 184/68 01/13/23 08:00 Pulse Ox 94 L 01/13/23 08:00 FiO2 40 01/11/23 09:58 Intake & Output 01/12/23 01/13/23 01/13/23 18:59 06:59 18:59 Intake Total 740 330 Output Total 1630 200 Balance -890 -200 330 Intake: IV 40 Sodium Chloride 0.9% 1, 40 000 ml @ 20 mls/hr IV . Q24H [facility] Rx#:[id number] Oral 700 330 Output: Urine 1630 200 Other: Voiding Method Indwelling Catheter Toilet Toilet # Voids 1 1 # Bowel Movements 1 1 - Labs CBC & Chem 7: 01/12/23 04:17 01/12/23 04:17 Labs: Abnormal Lab Results - Last 24 Hours (Table) 01/12/23 01/12/23 01/13/23 Range/Units 16:13 20:33 05:54 POC Glucose (mg/dL) 135 H 131 H 120 H (70-110) mg/dL
[2023-01-13 11:18] LABS: Glucose,Whole Blood 144 mg/dL (70-110)
--- NOTE | 2023-01-13 12:08 | P.DS ---
Providers Date of admission: 01/08/23 16:20 Expected date of discharge: 01/13/23 Attending physician: Yovany Hidalgo DO Consults: 01/08/23 16:20 Consult Physician Routine Consulting Provider: Milton Verdin Consult Reason/Comments: copd exacerbation Do you want consulting provider notified?: Yes 01/08/23 16:29 Consult Physician Routine Consulting Provider: Jethro Le Consult Reason/Comments: medical management Do you want consulting provider notified?: Already Contacted 01/08/23 18:14 Consult Physician Routine Consulting Provider: Ciaran Haq Consult Reason/Comments: Cardiac clearance Do you want consulting provider notified?: Yes Primary care physician: Stated None Hospital Course: Date of admission: 01/08/2023 Date of discharge: 01/13/2023 Admission diagnosis: Right hip IT fracture Discharge diagnosis: Same Attending physician: Dr. Hidalgo Surgical procedures: Right hip IM nail Brief history: Patient is a 77-year-old female with a history of right hip IT fracture status post fall. At this point patient has failed conservative treatment measures and has opted to proceed with a elective right hip IM nail. Hospital course: Details of patient's surgery can be found in operative report. Patient tolerated the procedure well and was subsequently transported to orthopedic floor. Patient's orthopeidc and medical care was provided daily. Patient had daily laboratory tests performed for evaluation of overall blood counts. Patient had daily physical therapy to include strengthening range of motion as well as education with walker ambulation. Patient was treated with Plavix and Xarelto for their postoperative DVT prophylaxis during their inpatient stay. Patient was noted to have a relatively uneventful postoperative course. Patient reported satisfactory pain control with oral pain medications by postoperative day 4. Patient showed satisfactory progress with physical therapy. Patient moved steadily through the program and had no difficulty meeting the goals by postoperative day 4. Given patient's otherwise satisfactory course and having met physical therapy goals, plan is to discharge patient home on postoperative day 4. Discharge condition/disposition: Patient will be discharged home in stable condition. Discharge medications: Instructions are given on resumption of patient's normal daily medications per primary care recommendation, in addition patient will be prescribed Tylenol with Codeine; senna;. Discharge instructions: 1. Wound care and infection precautions, keep incision dry and covered while showering, no lotions, creams, moisturizers. No soaking, tubs, pools, hottubs. Do not scrub over the incision. 2. Weight-bear as tolerated with walker / cane until follow-up. 3. Ice and elevate when necessary. Do not exceed 20 minutes per hour with ice pack. 4. Utilize compression sleeve until seen at first follow up appointment. 5. Nursing care. 6. Home physical therapy 7. Pain meds and anticoagulants per prescription. 8. Pain medication has potential to cause constipation. Increase oral fluid and fiber intake. Contact primary care provider if you have not had a bowel movement within 48 hours after discharge 9. No anti-inflammatory medication until discussed at first post operative visit, this including Motrin, Aleve, Mobic, Diclofenac. 10. Follow up in office at [address] Yovany Hidalgo 11. Follow up with your primary care doctor 7-10 days after discharge. 12. Contact [facility] with any questions, . Keep silver foam dressing on until 01/14/2023. It is okayed are removed dressings on 01/14/2023. You may shower directly over incision beginning 01/14/2023. Assessment: Right hip IT fracture Procedures: Right hip IM nail Patient Condition at Discharge: Good Plan - Discharge Summary Discharge Rx Participant: No New Discharge Prescriptions: New Benzocaine/Menthol Lozeng [Cepacol lozenge] 1 each MUCOUS MEM Q4HR PRN #20 lozenge PRN Reason: Sore Throat Famotidine [Pepcid] 20 mg PO DAILY #30 tab Sennosides/Docusate Sodium [Senna Plus 8.6-50 mg Softgel] 1 each PO DAILY PRN #20 capsule PRN Reason: Constipation Acetaminophen-Codeine 300-30mg [Tylenol w/codeine #3] 1 tab PO Q6H PRN #28 tablet PRN Reason: Pain Continue Clopidogrel [Plavix] 75 mg PO DAILY Nebivolol HCl 10 mg PO HS Ferrous Sulfate [Iron (65 MG Elemental)] 325 mg PO DAILY Rosuvastatin Calcium [Crestor] 40 mg PO HS Sertraline [Zoloft] 100 mg PO DAILY Fluticasone/Umeclidin/Vilanter [Trelegy Ellipta 100-62.5-25] 1 puff INHALATION RT-DAILY PRN PRN Reason: Shortness Of Breath Rivaroxaban [Xarelto] 2.5 mg PO BID Levothyroxine Sodium [Synthroid] 25 mcg PO DAILY No Action Pregabalin [Lyrica] 75 - 150 mg PO Q8H PRN PRN Reason: Pain Discharge Medication List Clopidogrel [Plavix] 75 mg PO DAILY 01/08/23 [History] Ferrous Sulfate [Iron (65 MG Elemental)] 325 mg PO DAILY 01/08/23 [History] Fluticasone/Umeclidin/Vilanter [Trelegy Ellipta 100-62.5-25] 1 puff INHALATION RT-DAILY PRN 01/08/23 [History] Levothyroxine Sodium [Synthroid] 25 mcg PO DAILY 01/08/23 [History] Nebivolol HCl 10 mg PO HS 01/08/23 [History] Pregabalin [Lyrica] 75 - 150 mg PO Q8H PRN 01/08/23 [History] Rivaroxaban [Xarelto] 2.5 mg PO BID 01/08/23 [History] Rosuvastatin Calcium [Crestor] 40 mg PO HS 01/08/23 [History] Sertraline [Zoloft] 100 mg PO DAILY 01/08/23 [History] Acetaminophen-Codeine 300-30mg [Tylenol w/codeine #3] 1 tab PO Q6H PRN #28 tablet 01/13/23 [Rx] Benzocaine/Menthol Lozeng [Cepacol lozenge] 1 each MUCOUS MEM Q4HR PRN #20 lozenge 01/13/23 [Rx] Famotidine [Pepcid] 20 mg PO DAILY #30 tab 01/13/23 [Rx] Sennosides/Docusate Sodium [Senna Plus 8.6-50 mg Softgel] 1 each PO DAILY PRN #20 capsule 01/13/23 [Rx] Follow up Appointment(s)/Referral(s): None,Stated [Primary Care Provider] - 1 Week Yovany Hidalgo DO [Doctor of Osteopathic Medicine] - 01/25/23 3:20 pm Patient Instructions/Handouts: COPD (Chronic Obstructive Pulmonary Disease) (DC) Activity/Diet/Wound Care/Special Instructions: Incision care, keep clean and dry. May remove dressing in 2-3 days and leave open to air if no drainage. Activity as tolerated with walker Take pain medications as directed. Utilize ice packs as needed, no longer than 20 min per hour. Please contact office with any questions or concerns. Discharge Disposition: HOME SELF-CARE
[2023-01-13 12:22] VITALS: BP 157/62; PULSE 79; RESP 16; TEMP 97.9
--- NOTE | 2023-01-13 14:22 | P.PN ---
Subjective Progress Note Date: 01/13/23 Principal diagnosis: Right peritrochanteric IT fracture, status post right hip IMN fixation. Postoperative day #4 I am seeing this patient in new consultation today 01/09/2023 after the patient was transferred from an outside facility in [facility]. Patient is a 77-year-old female with past medical history significant for COPD, asthma, coronary artery disease, prior heart catheterizations with 2 cardiac stents, hypertension, hyperlipidemia, peripheral arterial disease with 3 right leg stents, chronic anemia requiring iron infusions, DVT, and is a remote ex-smoker. Patient is a current resident of [place]. She does reportedly follow with a retail management keyholder for management of her asthma and COPD. She states that she uses Trelegy inhaler and when necessary albuterol nebulizations on an outpatient basis. Patient was transferred from [facility] in [facility] yesterday afternoon. She reportedly tripped over a dog bowl while at her daughter's house on Monday. She was then taken to the hospital, and was found to have a right hip fracture. CT of the pelvis without contrast at outside facility showed a minimally displaced comminuted right femoral intra- trochanteric fracture with comminution seen more extensive in the vicinity of t he greater trochanter. Peripheral pulses are intact and there are no signs of compartment syndrome. She is scheduled for surgery with Dr. Hidalgo tomorrow. We were consulted for management of the patient's COPD. She is wheezy on auscultation. She denies any shortness of breath, fevers/chills, change in her chronic cough, sputum production, chest pain, hemoptysis. Denies sick contacts. She also denies any chest pain, heart palpitations, lightheadedness, syncope, lower extremity swelling, orthopnea. Patient is currently sitting up in bed, on 3 L nasal cannula, in no acute distress. She is oxygenating at 90%. Chest x- ray on arrival showed some chronic upper lobe reticulonodular changes without any focal consolidation or evidence of pneumonia. CBC on arrival showed a WBC count of 7.2, hemoglobin 10.4, hematocrit 32.1, platelets 155. BMP was unremarkable. Normal saline is currently infusing at 75 mL per hour. Patient is anticoagulated on Xarelto on an outpatient basis, and clinical suspicion for pulmonary embolism is low. ECG on arrival shows no obvious acute ischemic coker es. Patient appears stable and admitted to the general medical floor. Patient was reevaluated today on 01/10/2023, patient required transfer to the ICU yesterday after her surgery, mostly because her O2 saturation Fluctuating up and down, patient was extremely restless and agitated, hence I recommended transferred to the ICU and place the patient on Precedex. Overnight the patient did fairly well on Precedex, remains on 0.4 mcg/kg/h, her IV fluid is 0.9 at 75 mL/h I cut it down to KVO chest x-ray showed mostly bilateral pleural effusion and possibly some fluid overload and the patient will be getting Lasix 40 mg IV push 1. Last night she was on BiPAP 12/6/40% now she is on 4 L nasal carrier. Her mentation seems to be better today remains slow but significant improvement in her mentation compared to yesterday after the surgery. WBC count is 7.2 hemoglobin is 9 electrolytes are normal, renal profile is normal patient had a CT angiogram of the chest last night, negative for thromboembolic disease Reevaluated today on 01/11/2023, patient remains in the ICU, patient is intermittently confused, last night she had an episode of supraventricular tachycardia, cardiology recommended Cardizem which is running now at 5 mg per hour. Patient remains on Precedex for her intermittent confusion and agitation, and she is now on 0.8 mcg/kg/h of Precedex. Intermittently on BiPAP 12/6/40%. Today I discontinued her Solu-Medrol altogether as I believe she may have symptoms of steroids induced psychosis. Labs were reviewed, basically unremarkable. She has a relatively normal basic metabolic profile normal renal profile blood sugars a bit elevated at 209 Reevaluated today on 01/12/2023, patient is doing great, and mental status is significantly better today compared to the last 2 days patient remains off steroids altogether. Feeling better, she is fully alert and oriented 3, denied being short of breath, her chest x-ray showed mild pulmonary edema, and recommended one dose of Lasix, patient remains on bronchodilators for underlying COPD. WBC count is 5.9 hemoglobin 9.5 electrodes are normal renal profile is normal Reevaluated today on , patient is doing great, has no active pulmonary symptoms no cough no wheezing no shortness of breath, patient is on room air, s he is likely to be discharged home today. No active pulmonary issues, hence I will clear the patient for discharge if cleared by other consultants Objective - Vital Signs Vital signs: Vital Signs Temp 97.9 F 01/13/23 12:00 Pulse 79 01/13/23 12:00 Resp 16 01/13/23 12:00 BP 157/62 01/13/23 12:00 Pulse Ox 94 L 01/13/23 12:00 FiO2 40 01/11/23 09:58 Intake & Output 01/12/23 01/13/23 01/13/23 18:59 06:59 18:59 Intake Total 740 330 Output Total 1630 200 Balance -890 -200 330 Intake: IV 40 Sodium Chloride 0.9% 1, 40 000 ml @ 20 mls/hr IV . Q24H JOSIE Rx#:[id number] Oral 700 330 Output: Urine 1630 200 Other: Voiding Method Indwelling Catheter Toilet Toilet # Voids 1 1 # Bowel Movements 1 1 - Exam Physical Exam: Revealed a 77-year-old female in no distress on room air. Head: Atraumatic, normocephalic. HEENT:[Neck is supple.] [No neck masses.] [No thyromegaly.] [No JVD.] Chest: [Clear throughout no crackles or rhonchi or wheezes Cardiac Exam: [Normal S1 and S2, no S3 gallop, no murmur.] Abdomen: [Soft, nontender, no megaly, no rebound, no guarding, normal bowel sounds.] Extremities: [No clubbing, no edema, no cyanosis.] Neurological Exam: Alert and oriented 3 with focal deficit Psychiatric: Normal mood, normal affect, normal mental status examination. - Labs CBC & Chem 7: 01/12/23 04:17 01/12/23 04:17 Labs: Abnormal Lab Results - Last 24 Hours (Table) 01/12/23 01/12/23 01/13/23 Range/Units 16:13 20:33 05:54 POC Glucose (mg/dL) 135 H 131 H 120 H (70-110) mg/dL 01/13/23 Range/Units 11:17 POC Glucose (mg/dL) 144 H (70-110) mg/dL Assessment and Plan Assessment: Impression: Right femoral intertrochanteric fracture , status post Right hip IMN fixation , postoperative day #4 Acute hypoxemic respiratory failure, resolved Coronary artery disease, with 2 prior cardiac stents History of peripheral arterial disease, with prior revascularization and 3 stents to the right leg Essential hypertension Hyperlipidemia Chronic iron deficiency anemia requiring iron infusions History of DVT, anticoagulated on Xarelto on an outpatient basis Hypothyroidism Ex-smoker, remote history Acute metabolic encephalopathy with confusion, completely resolved Paroxysmal supraventricular tachycardia, resolved Recommendation: Agree with discharge planning Patient to go back on her usual bronchodilators including albuterol, and Symbicort, Patient to follow up on outpatient basis as needed. Cleared for discharge from or perspective. Time with Patient: Less than 30
== END 2023-01-13 14:07 | disposition home or self-care (01) | DRG 480 ==
LOC: EC 14:35 → 4SSUR 16:20 → 2SICU 01-09 22:29 → 3SCARD 01-13 01:56
PROVIDERS: ADMIT Orthopaedic Surgery; ATTEND Orthopaedic Surgery
PROC: 0QS606Z Reposition Right Upper Femur with Intramedullary Internal Fixation Device, Open Approach (ICD-10-PCS; principal; 2023-01-09 08:25)
DX: S72.141A Displaced intertrochanteric fracture of right femur, initial encounter for closed fracture (principal); G93.41 Metabolic encephalopathy; J96.01 Acute respiratory failure with hypoxia; I50.31 Acute diastolic (congestive) heart failure; I47.1 Supraventricular tachycardia; J44.1 Chronic obstructive pulmonary disease with (acute) exacerbation; J90 Pleural effusion, not elsewhere classified; W01.0XXA Fall on same level from slipping, tripping and stumbling without subsequent striking against object, initial encounter; Y93.01 Activity, walking, marching and hiking; D50.9 Iron deficiency anemia, unspecified; E03.9 Hypothyroidism, unspecified; E78.5 Hyperlipidemia, unspecified; F32.A Depression, unspecified; H54.62 Unqualified visual loss, left eye, normal vision right eye; I25.10 Atherosclerotic heart disease of native coronary artery without angina pectoris; I27.20 Pulmonary hypertension, unspecified; I73.9 Peripheral vascular disease, unspecified; T38.0X5A Adverse effect of glucocorticoids and synthetic analogues, initial encounter; I11.0 Hypertensive heart disease with heart failure; R73.9 Hyperglycemia, unspecified; Z20.822 Contact with and (suspected) exposure to COVID-19; Z79.01 Long term (current) use of anticoagulants; Z79.02 Long term (current) use of antithrombotics/antiplatelets; Z79.51 Long term (current) use of inhaled steroids; Z79.890 Hormone replacement therapy; Z79.899 Other long term (current) drug therapy; Z86.718 Personal history of other venous thrombosis and embolism; Z86.73 Personal history of transient ischemic attack (TIA), and cerebral infarction without residual deficits; Z95.5 Presence of coronary angioplasty implant and graft; Z87.891 Personal history of nicotine dependence
CPT/HCPCS: 36415; 36600; 70450; 71045; 71275; 73501; 80048; 82805; 83735; 84132; 85025; 85027; 85610; 85730; 86850; 86870; 86880; 86900; 86901; 87635; 93005; 93306; 94640; 94660; 94760; 96361; 96374; 96375; 96376; 99285